=== PATIENT | female | born 1955 | race Caucasian/White ===

== ENCOUNTER → 2023-02-08 13:12 | Outpatient (CLI) | payer MEDICARE, SELFPAY ==
--- NOTE | ~2023-02-08 | US_ITS ---
Duplex Sonography of the right extremity: Indication: Swelling Findings: Sagittal and transverse B-mode images as well as color-flow imaging were performed on the r ight femoral and popliteal veins. B-mode examination was done without and with compression in the tr ansverse plane. There is good visualization of the common femoral, proximal profunda femoral, superf icial femoral, greater saphenous, and popliteal veins. Normal flow was seen on color-flow imaging. N ormal compressibility was demonstrated. Visualized calf veins are also patent. Impression: No evidence of deep vein thrombosis involving the right lower extremity. Reviewed, dictated and finalized at location M. Impression: No evidence of deep vein thrombosis involving the right lower extremity.
== END ==
DX: R22.41 Localized swelling, mass and lump, right lower limb (principal)
CPT/HCPCS: 93971

== ENCOUNTER 2024-10-20 17:10 | Observation (INO) | payer MEDICARE, SELFPAY ==
[2024-10-20] VITALS (22 sets, daily range): BP systolic 120–150; BP diastolic 50–107; PULSE 74–86; RESP 6–28; TEMP 36.6; O2SAT 96–100
--- NOTE | ~2024-10-20 | XR_ITS ---
EXAMINATION: XR chest 1V portable Exam Date/Time: 10/20/2024 18:03 KNOWLEDGE MANAGEMENT CONSULTANT HISTORY: syncope Comparison: 02/28/2018. RESULT: Lines, tubes, and devices: Ovoid/cylindrical opacity over the midline lower chest, presumably weight analyst al artifact. Lungs and pleura: Clear. Cardiomediastinal silhouette: Stable. Other: No acute osseous or upper abdominal finding. IMPRESSION: No acute cardiopulmonary process. Presumed external artifact over the midline lower chest, consider a lateral view of the chest for fur ther evaluation. Reviewed, dictated and finalized at location K. LEDGE MANAGEMENT CONSULTANT IMPRESSION: No acute cardiopulmonary process. Presumed external artifact over the midline lower chest, consider a lateral vie w of the chest for further evaluation.
--- NOTE | ~2024-10-20 | MR_ITS ---
EXAMINATION: MR brain/brain stem wo/w con DATE: 10/22/2024 13:25 INDICATION: Syncope TECHNIQUE: Magnetic resonance imaging (MRI) of the brain and brainstem was performed both prior to an d following the administration of intravenous contrast. 20 mL MultiHance COMPARISON: Reference is made to CT examination of the brain dated 10/20/2024 FINDINGS: No restricted diffusion to suggest acute or subacute cerebral infarction. No abnormal signal intensity on gradient echo imaging to suggest acute or subacute hemorrhage. Trace nonspecific scattered increased T2 weighted signal intensity within the cerebral white matter. No abnormal signal intensity detected on the other sequences within these white matter abnormalities. Flow voids are seen in the cerebral arteries on the T2-weighted sequences consistent with their expec brant patency. Visualized orbits and soft tissues are unremarkable. There are no areas of abnormal enhancement on the post contrast images. Increased T2 signal intensity identified within the left mastoid air cells suggesting left-sided mast oid effusion. Right mastoid air cells are well aerated. Paranasal sinuses are unremarkable. IMPRESSION: No acute cerebral infarction. No acute or subacute hemorrhage. No abnormal contrast enhancement. Scattered nonspecific increased T2 weighted signal intensity within the cerebral white matter without abnormal contrast enhancement or additional signal abnormality. Left-sided mastoid effusion, as detailed above. Reviewed, dictated and finalized at location A. HOLOGIST IMPRESSION: No acute cerebral infarction. No acute or subacute hemorrhage. No abnormal contrast enhancement. Scattered nonspecific increased T2 weighted signal intensity within the cerebra l white matter without abnormal contrast enhancement or additional signal abnor mality. Left-sided mastoid effusion, as detailed above.
--- NOTE | ~2024-10-20 | US_ITS ---
EXAMINATION: US carotid duplex BI DATE: 10/21/2024 16:38 INDICATION: Syncope TECHNIQUE: Grayscale, color Doppler, and pulsed Doppler images of the cervical carotid arteries were obtained. The degree of vessel stenosis is placed in one of the following categories: normal, <50%, 5 0-69%, >=70% but less than near-occlusion, near-occlusion, or total occlusion. Note that percent sten osis relative to normal distal artery lumen diameter is indirectly measured from velocity measurement s as described by Armaan, et al. Radiology 2003; 229:340-346. COMPARISON: None. FINDINGS: RIGHT: The right common carotid artery (CCA) peak systolic velocity (PSV) is 76.5 cm/s. The right internal c arotid artery (ICA) PSV is 107.5 cm/s. The right ICA end-diastolic velocity (EDV) is 34.5 cm/s. The r ight ICA/CCA PSV ratio is 1.4. Grayscale and color Doppler images yield an estimate of less than 50% diameter reduction from plaque in the ICA. The external carotid artery (ECA) PSV is 107.6 cm/s. There is antegrade flow in the right vertebral artery. LEFT: The left CCA PSV is 91.0 cm/s. The left ICA PSV is 77.6 cm/s. The left ICA EDV is 22.6 cm/s. The left ICA/CCA PSV ratio is 0.9. Grayscale and color Doppler images yield an estimate of less than 50% diam eter reduction from plaque in the ICA. The ECA PSV is 101.6 cm/s. There is antegrade flow in the left vertebral artery. IMPRESSION: 1. Less than 50% stenosis in the right internal carotid artery. 2. Less than 50% stenosis in the left internal carotid artery. Reviewed, dictated and finalized at Location A. Reviewed, dictated and finalized at location A. FYING PLANT OPERATOR
--- NOTE | ~2024-10-20 | XR_ITS ---
EXAM: XR hip LT 2V w AP pelvis DATE: 10/20/2024 22:27 HISTORY: fall . COMPARISON: 02/06/2019, images only. FINDINGS: Decreased mineralization. No fracture or dislocation. No lytic or blastic lesion. Degenera tive changes in the lumbar spine. Moderate bilateral hip osteoarthritic arthritis. No erosion or maciej osteal change. Soft tissues within normal limits. IMPRESSION: No acute osseous finding in the pelvis or left hip. Reviewed, dictated and finalized at location K. ASTONE MECHANIC
--- NOTE | ~2024-10-20 | XR_ITS ---
CHEST RADIOGRAPH, PA AND LATERAL CLINICAL HISTORY: syncope . COMPARISON: 10/20/2024 at 6:10 PM TECHNIQUE: PA and lateral views of the chest. FINDINGS Left atrial enlargement. The remainder of the cardiomediastinal silhouette is unremarkable. The ovoid density seen on previous examination does not persist on the current study, likely artifact ual The lungs are clear. IMPRESSION: No focal infiltrate or effusion. Reviewed, dictated and finalized at location A. GER INTEGRATED
--- NOTE | ~2024-10-20 | CT_ITS ---
EXAMINATION: CT brain wo con DATE: 10/20/2024 19:01 INDICATION: syncope and collapse . TECHNIQUE: Computed tomography (CT) of the head was performed without intravenous contrast. The mA wa s adjusted according to patient size. Iterative reconstruction technique was employed. The dose-lengt h product was 605.33 mGy-cm. COMPARISON: 11/18/2005. . FINDINGS: No acute intracranial hemorrhage or extra-axial fluid collection. No hydrocephalus, mass, or herniation. No acute ischemic infarct. Unremarkable dural venous sinus attenuation. No acute osseous abnormality. Left mastoid fluid, the remaining aerated spaces are clear. Mild atrophy and chronic white matter change. Atherosclerotic intracranial calcification. IMPRESSION: No acute intracranial process. Reviewed, dictated and finalized at location K. Y LINE TECHNICIAN
--- NOTE | ~2024-10-20 | XR_ITS ---
EXAM: XR knee RT min 4V DATE: 10/20/2024 19:20 HISTORY: knee pain . COMPARISON: 02/06/2019. FINDINGS: Decreased mineralization. No fracture or dislocation. No lytic or blastic lesion. Uncompli cated appearing right knee arthroplasty hardware. Moderate right knee joint effusion. No erosion or p eriosteal change. Soft tissues within normal limits. IMPRESSION: No acute osseous finding in the right knee. No radiographic evidence of hardware related complication. Reviewed, dictated and finalized at location K. ING HELPER IMPRESSION: No acute osseous finding in the right knee. No radiographic evidenc e of hardware related complication.
--- NOTE | ~2024-10-20 | XR_ITS ---
EXAM: XR knee LT min 4V DATE: 10/20/2024 19:19 HISTORY: knee pain . COMPARISON: 02/06/2019. FINDINGS: Decreased mineralization. No fracture or dislocation. No lytic or blastic lesion. Uncompli cated appearing left knee arthroplasty hardware. Small-volume joint effusion. No erosion or periostea l change. Soft tissues within normal limits. IMPRESSION: No acute osseous finding in the left knee. No radiographic evidence of hardware related c omplication. Reviewed, dictated and finalized at location K. ER PULP WASHER IMPRESSION: No acute osseous finding in the left knee. No radiographic evidence of hardware related complication.
--- NOTE | 2024-10-20 17:26 | ECG_ITS ---
Test Date: 2024-10-20 17:30:50 Measurements Intervals [place] Rate: 79 P: 39 FL: 201 QRS: -3 QRSD: 99 T: 29 QT: 377 QTc: 432 Interpretive Statements SINUS RHYTHM WITH SINUS ARRHYTHMIA LOW QRS VOLTAGE IN PRECORDIAL LEADS [QRS DEFLECTION < 1.0 mV IN CHEST LEADS] MINIMAL VOLTAGE CRITERIA FOR LVH, CONSIDER NORMAL VARIANT [MEETS CRITERIA IN ONE OF: R(aVL), S(V1), R(V5), R(V5/V6)+S(V1)] ABNORMAL ECG Electronically Signed On 10-21-2024 10:40:17 STONE CARRIAGE OPERATOR by Kendall Win M.D.
[2024-10-20 17:58] LABS: Basophils Percent Auto 0.3 % (0.2-1.2); Eosinophils Absolute Auto 0.1 K/mm3 (0-0.3); Eosinophils Percent Auto 1.3 % (0-4.4); Hematocrit 41.9 % (37.0-47.0); Hemoglobin 13.8 g/dL (12.0-15.0); Immature Granulocyte Absolute 0.02 K/mm3 (0.00-0.031); Immature Granulocyte Percent A 0.3 % (0-0.5); Lymphocytes Absolute Auto 1.13 K/mm3 (0.9-3.2); Lymphocytes Percent Auto 18.3 % (18.3-44.2); Mean Corpuscular HGB Conc 32.9 g/dl (32-36); Mean Corpuscular Hemoglobin 31.1 pg (26-34); Mean Corpuscular Volume 94.4 fl (80-100); Monocytes Absolute Auto 0.4 K/mm3 (0.1-0.6); Monocytes Percent Auto 6.3 % (2.6-8.5); Neutrophils Absolute Auto 4.5 K/mm3 (1.3-6.7); Neutrophils Percent Auto 73.5 % (45.5-73.1); Platelet Count Result 163 k/mm3 (150-375); Red Blood Count 4.44 M/mm3 (4.2-5.4); Red Cell Distribution Width 14.9 % (11.5-14.5); White Blood Count 6.2 K/mm3 (4.5-10.0)
--- NOTE | 2024-10-20 18:06 | ED_ITS ---
HPI - General Adult General Chief complaint: Seizure <Theresa Daugherty PA-C - Last Filed: 10/20/24 23:35> Stated complaint: seizure <Theresa Daugherty PA-C - Last Filed: 10/20/24 23:35> Time Seen by Provider: 10/20/24 17:36 <Theresa Daugherty PA-C - Last Filed: 10/20/24 23:35> History of Present Illness HPI narrative: 68-year-old female with a history of thyroid cancer presents to the ED via EMS from home for syncope vs seizure. Patient's daughter is at bedside who assist with history. States she was in the basement when she heard a loud thud. She found her mother on the floor in the kitchen shaking her extremities and foaming at the mouth. States she was unconscious for approximately 2 minutes and contacted 911. When the patient woke up she seemed confused and disoriented for approximately 10 minutes. States she was able to say where she was and who she was, however she was having difficulty recalling the events that occurred and repeating questions. The patient states she has been taking her blood pressure regularly for the past several months as advised by her PCP because she has had 2 syncopal episodes in the past few months, first syncopal episode was in June and the 2nd was in September. She was advised to follow up outpatient with Cardiology Neurology after the syncopal episodes. States she has had a negative workup with Cardiology thus far. She has an appointment on October 27 with her neurologist and believes that the the neuro workup has been negative. She has no history of seizures. She took her blood pressure around 1:00 p.m. today and found it was 120s/80s. States shortly after she began feeling lightheaded while she was cooking in the kitchen. States she wanted to finish cooking so she could eat and was planning to retake her blood pressure, however unfortunately while cooking and she passed out. The patient states her only complaints at this time are for diffuse soreness to the knees which she is attributing to arthritis. Unsure if she hit her head during the fall. She has no other pain or complaints. She denies chest pain, shortness of breath palpitations surrounding the fall, vision changes or focal numbness or weakness. Denies neck pain or back pain. No cough or congestion, no fevers. Pt states she has been advised by her PCP to only take her amlodipine if BP is 150>90, otherwise hold antihypertensives due to concerns that hypotension may be source of recurrent syncope. Patient follows with [facility] for thyroid cancer she had a thyroidectomy in August without complications and underwent radioactive iodine treatment shortly after. She is not currently on chemo or radiation treatment. <Theresa Daugherty PA-C - Last Filed: 10/20/24 23:35> Related Data Allergies/adverse reactions: Allergies Allergy/AdvReac Type Severity Reaction Status Date / Time No Known Allergies Allergy Verified 10/20/24 17:30 <Theresa Daugherty PA-C - Last Filed: 10/20/24 23:35> Review of Systems 2 Review of Systems: All systems reviewed & are unremarkable except as noted in HPI and below <Theresa Daugherty PA-C - Last Filed: 10/20/24 23:35> PMFSH Family History Family History: Family History Other Diabetes mellitus Family history of malignant neoplasm Hypertension <Theresa Daugherty PA-C - Last Filed: 10/20/24 23:35> Social History Social History: Social History Smoking status: Never smoker Alcohol intake: current <Theresa Daugherty PA-C - Last Filed: 10/20/24 23:35> Exam 2 Narrative: GENERAL: Well-appearing, well-nourished, and in no acute distress. HEAD: Normocephalic, atraumatic. EYES: PERRLA and EOMI. ENT: Nares clear, no rhinorrhea or epistaxis. Mucous membranes moist. NECK: No midline cervical spinous tenderness, crepitus, step-offs or deformities BACK: No midline thoracolumbar spinous tenderness, crepitus, step-offs or deformities CHEST: Clear to auscultation. No respiratory distress. HEART: Regular rate and rhythm. No murmur heard. Normal peripheral pulses. ABDOMEN: Soft, nontender, nondistended, normal active bowel sounds. EXTREMITIES: Diffuse tenderness to the knees on palpation bilaterally with no overlying skin changes or deformities. Limited active range of motion secondary to pain. Full passive range of motion. DP pulse 2 +. Sensation intact. Tenderness to the left hip with full active range of motion no obvious deformities SKIN: Warm, dry, no rash. NEURO: No focal deficits. Alert and oriented x3. Cranial nerves 2-12 intact. Strength 5/5 in BUE and BLE. Sensation intact throughout <Theresa Daugherty PA-C - Last Filed: 10/20/24 23:35> Course CIVIL ENGINEERING DESIGN DRAFTSPERSON/PA Physician Supervision For this patient encounter, I reviewed the CIVIL ENGINEERING DESIGN DRAFTSPERSON or PA documentation, treatment plan, and medical decision making; and I had [id number] time with this patient. <Solitario Mane MD - Last Filed: 10/21/24 04:49> Vital Signs Vital signs: Vital Signs Temperature 97.9 F 10/20/24 17:11 Pulse Rate 86 10/20/24 17:11 Blood Pressure 139/107 H 10/20/24 17:11 Pulse Oximetry 99 10/20/24 17:11 Oxygen Delivery Room Air 10/20/24 17:11 Temperature 97.9 F 10/20/24 17:11 Pulse Rate 63 10/21/24 03:47 Respiratory Rate 12 10/21/24 03:47 Blood Pressure 136/62 10/21/24 03:47 Pulse Oximetry 99 10/21/24 03:47 Oxygen Delivery CPAP 10/21/24 01:32 <Theresa Daugherty PA-C - Last Filed: 10/20/24 23:35> Vital Signs Temperature 97.9 F 10/20/24 17:11 Pulse Rate 86 10/20/24 17:11 Blood Pressure 139/107 H 10/20/24 17:11 Pulse Oximetry 99 10/20/24 17:11 Oxygen Delivery Room Air 10/20/24 17:11 Temperature 97.9 F 10/20/24 17:11 Pulse Rate 63 10/21/24 03:47 Respiratory Rate 12 10/21/24 03:47 Blood Pressure 136/62 10/21/24 03:47 Pulse Oximetry 99 10/21/24 03:47 Oxygen Delivery CPAP 10/21/24 01:32 <Solitario Mane MD - Last Filed: 10/21/24 04:49> Medical Decision Making MDM Narrative Medical decision making narrative: 68-year-old female presents to the ED via EMS with daughter at bedside for a syncopal episode that occurred this afternoon. See HPI for further history. Triage vitals with blood pressure 139/107, repeat is 145/89. She is afebrile nontoxic appearing resting comfortably in the exam bed. No evidence of trauma on exam other than diffuse bilateral knee tenderness which I suspect is chronic. Overall history is consistent with syncope as opposed to seizure, especially given patient's recent history over the past several months. Lab work shows no leukocytosis or anemia. Chemistries show no acute significant findings. Mag is normal. No electrolyte derangements. CT the brain shows no acute intracranial finding. X-ray bilateral knees is unremarkable. X-ray of the left hip unremarkable. X-ray of the chest shows no acute cardiopulmonary process. EKG shows sinus rhythm with sinus arrhythmia, prolonged CO interval to 201 consistent with first-degree AV block, normal QRS duration, normal QTC, no ischemic changes. Troponin is elevated to .0.042. TSH is low, pending reflex to free T4 and T3. Workup was discussed with the patient and daughter at bedside. Given elevated troponin in the setting of syncope, plan to admit to hospitalist for further evaluation. Pt and family agreeable with this. Discussed with Dr. Adams who agrees with the plan. <Theresa Daugherty PA-C - Last Filed: 10/20/24 23:35> Vital Signs Vital Signs: Vital Signs Temperature 97.9 F 10/20/24 17:11 Pulse Rate 86 10/20/24 17:11 Blood Pressure 139/107 H 10/20/24 17:11 Pulse Oximetry 99 10/20/24 17:11 Oxygen Delivery Room Air 10/20/24 17:11 Temperature 97.9 F 10/20/24 17:11 Pulse Rate 63 10/21/24 03:47 Respiratory Rate 12 10/21/24 03:47 Blood Pressure 136/62 10/21/24 03:47 Pulse Oximetry 99 10/21/24 03:47 Oxygen Delivery CPAP 10/21/24 01:32 <Theresa Daugherty PA-C - Last Filed: 10/20/24 23:35> Vital Signs Temperature 97.9 F 10/20/24 17:11 Pulse Rate 86 10/20/24 17:11 Blood Pressure 139/107 H 10/20/24 17:11 Pulse Oximetry 99 10/20/24 17:11 Oxygen Delivery Room Air 10/20/24 17:11 Temperature 97.9 F 10/20/24 17:11 Pulse Rate 63 10/21/24 03:47 Respiratory Rate 12 10/21/24 03:47 Blood Pressure 136/62 10/21/24 03:47 Pulse Oximetry 99 10/21/24 03:47 Oxygen Delivery CPAP 10/21/24 01:32 <Solitario Mane MD - Last Filed: 10/21/24 04:49> Lab Data Result diagrams: 10/20/24 17:45 10/20/24 17:45 <Theresa Daugherty PA-C - Last Filed: 10/20/24 23:35> Labs: Lab Results 10/20/24 10/20/24 Range/Units 17:45 22:46 WBC 6.2 (4.5-10.0) K/mm3 RBC 4.44 (4.2-5.4) M/mm3 Hgb 13.8 (12.0-15.0) g/dL Hct 41.9 (37.0-47.0) % MCV 94.4 (80-100) fl MCH 31.1 (26-34) pg MCHC 32.9 (32-36) g/dl RDW 14.9 H (11.5-14.5) % Plt Count 163 (150-375) k/mm3 MPV 11.0 H (7.4-10.4) fl Immature Gran % (Auto) 0.3 (0-0.5) % Neut % (Auto) 73.5 H (45.5-73.1) % Lymph % (Auto) 18.3 (18.3-44.2) % [place] % (Auto) 6.3 (2.6-8.5) % Eos % (Auto) 1.3 (0-4.4) % Baso % (Auto) 0.3 (0.2-1.2) % Lymph # (Auto) 1.13 (0.9-3.2) K/mm3 [place] # (Auto) 0.4 (0.1-0.6) K/mm3 Eos # (Auto) 0.1 (0-0.3) K/mm3 Baso # (Auto) 0.0 (0.0-0.1) K/mm3 Abs Immat Gran (auto) 0.02 (0.00-0.031) K/mm3 Absolute Neuts (auto) 4.5 (1.3-6.7) K/mm3 Absolute Nucleated RBC 0.000 (0.0-0.012) K/mm3 Nucleated RBC % 0.0 (0.0-0.2) % PT 14.1 (11.1-14.7) Seconds INR 1.1 APTT 23.5 (22.3-36.8) Seconds Sodium 140 (137-145) mmol/L Potassium 4.0 (3.4-5.0) mmol/L Chloride 102 (98-107) mmol/L Carbon Dioxide 27 (22-30) mmol/L Anion Gap 11 (4-12) mmol/L BUN 23 H (7-17) mg/dL Creatinine 0.72 (0.7-1.0) mg/dL Estim Creat Clear Calc 77 ml/min Estimated GFR > 60 (59 - ) Glucose 134 H (65-110) mg/dL Calcium 8.9 (8.4-10.2) mg/dL Magnesium 2.1 (1.6-2.3) mg/dL Total Bilirubin 0.6 (0.2-1.3) mg/dL AST 33 (14-36) U/L ALT 38 H (6-35) U/L Alkaline Phosphatase 131 H (38-126) U/L Troponin I 0.042 H* 0.172 H* D (0.000-0.034) ng/mL NT-Pro-B Natriuret Pep 80 (19.9-100) pg/mL Total Protein 8.0 (6.3-8.2) g/dL Albumin 4.7 (3.5-5.1) g/dL TSH (Reflex) 0.107 L (0.465-4.68) uIU/mL Free T4 2.53 H (0.78-2.19) ng/dL Urine Color Yellow (Yellow) Urine Appearance Clear (Clear) Urine pH 5.5 (5.0-9.0) Ur Specific [place] 1.009 (1.001-1.035) Urine Protein Negative (Negative) mg/dL Urine Glucose (UA) Negative (Negative) mg/dL Urine Ketones Negative (Negative) mg/dL Ur Blood (Man) Negative (Negative) Urine Nitrate Negative (Negative) Urine Bilirubin Negative (Negative) Urine Urobilinogen 0.2 (<2.0) mg/dL Leukocyte Esterase Rfl Trace H (Negative) EVELINE/UL Urine RBC 0-2 (0-2) /hpf Urine WBC 0-5 (0-3) /hpf Ur Squamous Epith Cells None seen (Few) /hpf Urine Bacteria None seen /hpf Urine Casts 0-2 <Theresa Daugherty PA-C - Last Filed: 10/20/24 23:35> Lab Results 10/20/24 10/20/24 Range/Units 17:45 22:46 WBC 6.2 (4.5-10.0) K/mm3 RBC 4.44 (4.2-5.4) M/mm3 Hgb 13.8 (12.0-15.0) g/dL Hct 41.9 (37.0-47.0) % MCV 94.4 (80-100) fl MCH 31.1 (26-34) pg MCHC 32.9 (32-36) g/dl RDW 14.9 H (11.5-14.5) % Plt Count 163 (150-375) k/mm3 MPV 11.0 H (7.4-10.4) fl Immature Gran % (Auto) 0.3 (0-0.5) % Neut % (Auto) 73.5 H (45.5-73.1) % Lymph % (Auto) 18.3 (18.3-44.2) % B[place]so[place] % (Auto) 6.3 (2.6-8.5) % Eos % (Auto) 1.3 (0-4.4) % Baso % (Auto) 0.3 (0.2-1.2) % Lymph # (Auto) 1.13 (0.9-3.2) K/mm3 [place] # (Auto) 0.4 (0.1-0.6) K/mm3 Eos # (Auto) 0.1 (0-0.3) K/mm3 Baso # (Auto) 0.0 (0.0-0.1) K/mm3 Abs Immat Gran (auto) 0.02 (0.00-0.031) K/mm3 Absolute Neuts (auto) 4.5 (1.3-6.7) K/mm3 Absolute Nucleated RBC 0.000 (0.0-0.012) K/mm3 Nucleated RBC % 0.0 (0.0-0.2) % PT 14.1 (11.1-14.7) Seconds INR 1.1 APTT 23.5 (22.3-36.8) Seconds Sodium 140 (137-145) mmol/L Potassium 4.0 (3.4-5.0) mmol/L Chloride 102 (98-107) mmol/L Carbon Dioxide 27 (22-30) mmol/L Anion Gap 11 (4-12) mmol/L BUN 23 H (7-17) mg/dL Creatinine 0.72 (0.7-1.0) mg/dL Estim Creat Clear Calc 77 ml/min Estimated GFR > 60 (59 - ) Glucose 134 H (65-110) mg/dL Calcium 8.9 (8.4-10.2) mg/dL Magnesium 2.1 (1.6-2.3) mg/dL Total Bilirubin 0.6 (0.2-1.3) mg/dL AST 33 (14-36) U/L ALT 38 H (6-35) U/L Alkaline Phosphatase 131 H (38-126) U/L Troponin I 0.042 H* 0.172 H* D (0.000-0.034) ng/mL NT-Pro-B Natriuret Pep 80 (19.9-100) pg/mL Total Protein 8.0 (6.3-8.2) g/dL Albumin 4.7 (3.5-5.1) g/dL TSH (Reflex) 0.107 L (0.465-4.68) uIU/mL Free T4 2.53 H (0.78-2.19) ng/dL Urine Color Yellow (Yellow) Urine Appearance Clear (Clear) Urine pH 5.5 (5.0-9.0) Ur Specific [place] 1.009 (1.001-1.035) Urine Protein Negative (Negative) mg/dL Urine Glucose (UA) Negative (Negative) mg/dL Urine Ketones Negative (Negative) mg/dL Ur Blood (Man) Negative (Negative) Urine Nitrate Negative (Negative) Urine Bilirubin Negative (Negative) Urine Urobilinogen 0.2 (<2.0) mg/dL Leukocyte Esterase Rfl Trace H (Negative) EVELINE/UL Urine RBC 0-2 (0-2) /hpf Urine WBC 0-5 (0-3) /hpf Ur Squamous Epith Cells None seen (Few) /hpf Urine Bacteria None seen /hpf Urine Casts 0-2 <Solitario Mane MD - Last Filed: 10/21/24 04:49> Discharge Plan Discharge Clinical Impression: Elevated troponin Syncope Qualifiers: Syncope type: unspecified Qualified Code(s): R55 - Syncope and collapse <Theresa Daugherty PA-C - Last Filed: 10/20/24 23:35> Patient Disposition: Still a Patient <Theresa Daugherty PA-C - Last Filed: 10/20/24 23:35> Condition: Stable <Theresa Daugherty PA-C - Last Filed: 10/20/24 23:35>
[2024-10-20 18:15] LABS: Alanine Aminotransferase 38 U/L (6-35); Albumin Level 4.7 g/dL (3.5-5.1); Alkaline Phosphatase 131 U/L (38-126); Anion Gap 11 mmol/L (4-12); Aspartate Amino Transferase 33 U/L (14-36); Bilirubin,Total 0.6 mg/dL (0.2-1.3); Blood Urea Nitrogen 23 mg/dL (7-17); Calcium 8.9 mg/dL (8.4-10.2); Carbon Dioxide 27 mmol/L (22-30); Chloride 102 mmol/L (98-107); Estimated CRCL calculation 77 ml/min; Estimated Glomerular Filt Rate > 60; Glucose 134 mg/dL (65-110); Sodium 140 mmol/L (137-145)
[2024-10-20] MEDS: SODIUM CHLORIDE 0.9% IV 1,000 ML 999 ML IV CONT ×2 (18:28→23:52)
[2024-10-20 21:23] LABS: Magnesium 2.1 mg/dL (1.6-2.3)
[2024-10-20 21:40] LABS: NT Pro B Type Natriuretic Pept 80 pg/mL (19.9-100); Troponin I 0.042 ng/mL (0.000-0.034)
[2024-10-20 21:42] LABS: INR 1.1; Prothrombin Time 14.1 Seconds (11.1-14.7)
[2024-10-20 21:43] LABS: Partial Thromboplastin Time 23.5 Seconds (22.3-36.8)
[2024-10-20 22:42] LABS: Thyroid Stimulating Hormone Reflex 0.107 uIU/mL (0.465-4.68)
--- NOTE | 2024-10-20 22:43 | ECG_ITS ---
Test Date: 2024-10-20 22:50:15 Measurements Intervals [place] Rate: 78 P: 36 MS: 203 QRS: 5 QRSD: 90 T: 40 QT: 377 QTc: 429 Interpretive Statements SINUS RHYTHM NORMAL ECG Compared to ECG 10/20/2024 17:30:50 Sinus arrhythmia no longer present Electronically Signed On 10-21-2024 10:46:38 MAINTENANCE SUPERVISOR by Kendall Win M.D.
[2024-10-20 23:01] LABS: Add Urine Microscopic? YES; Appearance Urine Clear (Clear); Bacteria Urine None Seen /hpf; Bilirubin Urine Negative (Negative); Blood Urine Negative (Negative); Color Urine Yellow (Yellow); Glucose Urine UA Negative (Negative); Ketones Urine Negative (Negative); Leukocyte Esterase Ur Trace LEU/UL (Negative); Nitrate Urine Negative (Negative); Non Pathogenic Casts 0-2; Protein Urine Negative (Negative); RBC Urine 0-2 /hpf (0-2); Specific Grav Ur 1.009 (1.001-1.035); Squamous Epithelial Cell Urine None Seen /hpf (Few); Urobilinogen Urine 0.2 mg/dL (<2.0); WBC Urine 0-5 /hpf (0-3); pH Urine 5.5 (5.0-9.0)
[2024-10-20 23:54] LABS: Free T4 Free Thyroxine Reflex 2.53 ng/dL (0.78-2.19)
[2024-10-21] VITALS (32 sets, daily range): BP systolic 98–145; BP diastolic 40–91; PULSE 47–89; RESP 12–24; TEMP 36.6–37.3; O2SAT 97–100; BMI 38.8
--- NOTE | 2024-10-21 00:14 | PC.NURSE ---
patient requesting cpap machine to help her sleep. pt states she also needs ice packs on bilateral knees due to swelling from falling .
[2024-10-21 00:16] LABS: Troponin I 0.172 ng/mL (0.000-0.034)
--- NOTE | 2024-10-21 01:30 | PM.IMHP ---
H&P: HPI History of Present Illness Date/Time: 10/21/24 01:30 Chief Complaint: Syncope Narrative: This is a 68-year-old female with past medical history significant for syncopal episodes, the thyroid cancer status post total thyroidectomy, hypertension, obesity. Patient was brought to the emergency room after having episode of syncope with collapse daughter found her sitting on the kitchen floor, unresponsive, stooped over with involuntary movement of bilateral upper extremities and foaming at the mouth. Patient has had a 40 lb weight loss intentionally has had episodes of syncope and seizure activity witnessed has had extensive thyroid workup done at [facility] currently has follow-up appointments with Cardiology and Neurology and primary care physician. In emergency room patient was found to have slight elevation of troponin and decision has been made to keep for observation. EXAMINATION: CT brain wo con DATE: 10/20/2024 19:01 INDICATION: syncope and collapse . TECHNIQUE: Computed tomography (CT) of the head was performed without intravenous contrast. The mA was adjusted according to patient size. Iterative reconstruction technique was employed. The dose-length product was 605.33 mGy-cm. COMPARISON: 11/18/2005. . FINDINGS: No acute intracranial hemorrhage or extra-axial fluid collection. No hydrocephalus, mass, or herniation. No acute ischemic infarct. Unremarkable dural venous sinus attenuation. No acute osseous abnormality. Left mastoid fluid, the remaining aerated spaces are clear. Mild atrophy and chronic white matter change. Atherosclerotic intracranial calcification. IMPRESSION: No acute intracranial process. CHEST RADIOGRAPH, PA AND LATERAL CLINICAL HISTORY: syncope . COMPARISON: 10/20/2024 at 6:10 PM TECHNIQUE: PA and lateral views of the chest. FINDINGS Left atrial enlargement. The remainder of the cardiomediastinal silhouette is unremarkable. The ovoid density seen on previous examination does not persist on the current study, likely artifactual The lungs are clear. IMPRESSION: No focal infiltrate or effusion. EXAM: XR hip LT 2V w AP pelvis DATE: 10/20/2024 22:27 HISTORY: fall . COMPARISON: 02/06/2019, images only. FINDINGS: Decreased mineralization. No fracture or dislocation. No lytic or blastic lesion. Degenerative changes in the lumbar spine. Moderate bilateral hip osteoarthritic arthritis. No erosion or periosteal change. Soft tissues within normal limits. IMPRESSION: No acute osseous finding in the pelvis or left hip. Review of Systems Review of Systems: ROS unobtainable: Yes unobtainable due to mental status (Patient has no recollection of event) [facility] Family History Family History Other Diabetes mellitus Family history of malignant neoplasm Hypertension Social History Social History Smoking status: Never smoker Alcohol intake: current Meds Home Medications and Allergies Allergies Allergy/AdvReac Type Severity Reaction Status Date / Time No Known Allergies Allergy Verified 10/20/24 17:30 Vital Signs Vital Signs - 24 hr 10/20/24 17:11 10/20/24 17:23 10/20/24 17:25 Temperature 97.9 F Pulse Rate 86 Respiratory Rate Blood Pressure 139/107 H Pulse Oximetry 99 Oxygen Delivery Room Air Room Air Room Air 10/20/24 17:31 10/20/24 17:47 10/20/24 18:01 Temperature Pulse Rate 83 78 83 Respiratory Rate 20 14 28 H Blood Pressure 145/89 H 130/74 145/89 H Pulse Oximetry 99 100 100 Oxygen Delivery 10/20/24 18:17 10/20/24 18:32 10/20/24 19:46 Temperature Pulse Rate 80 79 79 Respiratory Rate 14 20 14 Blood Pressure 145/78 H 150/69 H 144/66 H Pulse Oximetry 99 100 98 Oxygen Delivery 10/20/24 20:16 10/20/24 20:32 10/20/24 20:46 Temperature Pulse Rate 77 74 81 Respiratory Rate 16 19 18 Blood Pressure 147/73 H 142/61 H 142/71 H Pulse Oximetry 97 98 98 Oxygen Delivery 10/20/24 21:01 10/20/24 21:16 10/20/24 21:31 Temperature Pulse Rate 77 79 78 Respiratory Rate 17 14 18 Blood Pressure 139/65 144/72 H 145/71 H Pulse Oximetry 97 96 98 Oxygen Delivery 10/20/24 21:47 10/20/24 22:01 10/20/24 22:16 Temperature Pulse Rate 82 76 81 Respiratory Rate 19 18 Blood Pressure 134/68 129/50 L 125/69 Pulse Oximetry 99 99 99 Oxygen Delivery 10/20/24 22:31 10/20/24 22:46 10/20/24 23:01 Temperature Pulse Rate 79 76 78 Respiratory Rate 6 L 14 Blood Pressure 125/66 120/77 131/57 L Pulse Oximetry 99 99 98 Oxygen Delivery 10/20/24 23:16 10/20/24 23:32 10/20/24 23:46 Temperature Pulse Rate 75 83 77 Respiratory Rate 18 14 16 Blood Pressure 123/59 L 143/88 H 131/65 Pulse Oximetry 98 99 99 Oxygen Delivery 10/21/24 00:25 Temperature Pulse Rate Respiratory Rate Blood Pressure Pulse Oximetry Oxygen Delivery CPAP Exam Narrative: Laying in a stretcher Const: General: comfortable, no acute distress, well developed, alert, awake and obese Nutritional Appearance: obese morbidly obese Orientation/consciousness: patient oriented x3 HENMT: Head: normal to inspection, normocephalic and atraumatic Ears: hearing grossly normal bilaterally Face/Nose/Sinus: normal facial exam Face and sinus: normal facial exam Eyes: General: appearance normal, both eyes and all related structures Pupils: Equal, round and reactive pupils present EOM: EOMs intact bilaterally Neck: Neck: full ROM, no lymphadenopathy and no JVD Thyroid: thyroid normal Lymphatic: no lymphadenopathy noted Resp: Effort & Inspection: normal respiratory effort and able to speak in complete sentences Auscultation: clear to auscultation bilaterally Cardio: Jugular venous distension: no JVD Rate: regular rate Rhythm: regular rhythm Heart sounds: S1 normal heart sound present and S2 normal heart sound present GI: GI Palp: Yes Soft to palpation and Yes No hepatosplenomegaly present : General: Yes deferred Skin: Rashes: no rashes Wounds: no wounds Neuro: General: patient oriented x3 and CN's II-XI intact bilaterally Cranial nerves: Yes CN's II-XII intact bilaterally and Yes Equal, round and reactive pupils present Cognition (Neuro): normal cognition Speech: normal speech Gait exam (Neuro): Unable to assess gait Motor exam (neuro): 5/5 motor strength present throughout Extrem: General: normal to inspection, full ROM, no joint enlargement and no pedal edema H&P: Results Labs Labs: Short CBC 10/20/24 Range/Units 17:45 WBC 6.2 (4.5-10.0) K/mm3 Hgb 13.8 (12.0-15.0) g/dL Hct 41.9 (37.0-47.0) % Plt Count 163 (150-375) k/mm3 [facility] 10/20/24 17:45 Sodium 140 Potassium 4.0 Chloride 102 Carbon Dioxide 27 BUN 23 H Creatinine 0.72 Glucose 134 H Calcium 8.9 Cardiac Enzymes 10/20/24 10/20/24 Range/Units 17:45 22:46 Troponin I 0.042 H* 0.172 H* D (0.000-0.034) ng/mL Liver Function 10/20/24 Range/Units 17:45 Total Bilirubin 0.6 (0.2-1.3) mg/dL AST 33 (14-36) U/L ALT 38 H (6-35) U/L Alkaline Phosphatase 131 H (38-126) U/L Albumin 4.7 (3.5-5.1) g/dL Urine 10/20/24 Range/Units 22:46 Urine Color Yellow (Yellow) Urine Appearance Clear (Clear) Urine pH 5.5 (5.0-9.0) Ur Specific [place] 1.009 (1.001-1.035) Urine Protein Negative (Negative) mg/dL Urine Glucose (UA) Negative (Negative) mg/dL Assessment and Plan Assessment and plan (1) Elevated troponin: Code(s): R79.89 - Other specified abnormal findings of blood chemistry Status: Acute Assessment and Plan: Admit to IMU Continue to trend troponins EKG unchanged Chest pain free (2) Syncope: Qualifiers: Syncope type: unspecified Qualified Code(s): R55 - Syncope and collapse Code(s): R55 - Syncope and collapse Status: Acute Assessment and Plan: Follow-up in outpatient setting Patient with extensive workup done at [facility] (3) Morbid obesity with BMI of 45.0-49.9, adult: Code(s): E66.01 - Morbid (severe) obesity due to excess calories; Z68.42 - Body mass index [BMI] 45.0-49.9, adult Status: Acute Assessment and Plan: Patient actively participating in weight loss (4) Weight loss: Code(s): R63.4 - Abnormal weight loss Status: Acute Assessment and Plan: Has had 40 lb weight loss after intentionally participating in weight loss Hospitalist [facility] Advance Care Plan I have confirmed that the patient's Advanced Care Plan is present, code status is documented, or surrogate decision maker is listed in patient medical record.: Yes Medication Reconciliation I have utilized all available resources to obtain, update and review the patients current medications (includes all prescriptions, OTC, herbals, cannabis, and nutritional supplements).: Yes
[2024-10-21 03:37] LABS: Troponin I 0.125 ng/mL (0.000-0.034)
--- NOTE | 2024-10-21 06:59 | PC.NURSE ---
this rn confirmed home medications with patient at bedside.
--- NOTE | 2024-10-21 07:44 | PC.NURSE ---
breakfast tray ordered at this time
--- NOTE | 2024-10-21 08:05 | PC.NURSE ---
Pt c/o not having her home medications. Hospitalist called to update and inform med list was confirmed
--- NOTE | 2024-10-21 09:36 | PC.NURSE ---
Called pharmacy for missing meds
[2024-10-21] MEDS: SERTRALINE HCL 50 MG TABLET 100 MG PO (10:40)
[2024-10-21] MEDS: ATORVASTATIN 40 MG TABLET PO (10:40)
[2024-10-21] MEDS: ACETAMINOPHEN 325 MG TABLET 650 MG PO ×2 (10:40→17:44)
--- NOTE | 2024-10-21 12:39 | P.PNIM_ITS ---
Progress Note: A&P Assessment and Plan (1) Elevated troponin: Code(s): R79.89 - Other specified abnormal findings of blood chemistry Status: Acute (2) Syncope: Qualifiers: Syncope type: unspecified Qualified Code(s): R55 - Syncope and collapse Code(s): R55 - Syncope and collapse Status: Acute (3) Morbid obesity with BMI of 45.0-49.9, adult: Code(s): E66.01 - Morbid (severe) obesity due to excess calories; Z68.42 - Body mass index [BMI] 45.0-49.9, adult Status: Acute (4) Weight loss: Code(s): R63.4 - Abnormal weight loss Status: Acute Plan This is a 68-year-old female who presents to the ED via EMS from home for syncope vs seizure. Patient's daughter is at bedside who assist with history. States she was in the basement when she heard a loud thud. She found her mother on the floor in the kitchen shaking her extremities and foaming at the mouth. States she was unconscious for approximately 2 minutes and contacted 911. When the patient woke up she seemed confused and disoriented for approximately 10 minutes. States she was able to say where she was and who she was, however she was having difficulty recalling the events that occurred and repeating questions. She took her blood pressure around 1:00 p.m. today and found it was 120s/80s. States shortly after she began feeling lightheaded while she was cooking in the kitchen. States she wanted to finish cooking so she could eat and was planning to retake her blood pressure, however unfortunately while cooking and she passed out. ED evaluation with laboratory workup showed no leukocytosis or anemia. Came panel was unremarkable. Magnesium is normal. CT head with no acute intracran ial abnormality. X-ray bilateral knees unremarkable. X-ray left hip unremarkable. X-ray chest with no acute cardiopulmonary process. EKG showed sinus rhythm with sinus arrhythmia prolonged NM interval to to 0 1 consistent with first-degree AV block normal QRS duration normal QTC. Troponin came back elevated at 0.042. Serial troponin was performed which showed 0.042-0.172-0.125. The patient states she has been taking her blood pressure regularly for the past several months as advised by her PCP because she has had 2 syncopal episodes in the past few months, first syncopal episode was in June and the 2nd was in September. She was advised to follow up outpatient with Cardiology Neurology after the syncopal episodes. States she has had a negative workup with Cardiology thus far. Stress test 08/2024 was negative. Holter showed some episodes of supraventricular tachycardia otherwise unremarkable. Will consult Cardiology for further evaluation. Will get echocardiogram and carotid She also had MRI brain which showed microhemorrhages in cerebellar and frontal lobe. Findings suggestive of intracranial hypertension. She follows up with neurologist. No prior history of seizures. Neurology for evaluation Elevated troponin placed on aspirin 81 mg daily Thyroid cancer status post thyroidectomy August 2024 on thyroid supplement. TSH mildly low with high T4 Bilateral knee pain history of bilateral knee replacement x-ray unremarkable Recent history of significant weight loss History of sleep apnea on CPAP Hypertension Hyperlipidemia DVT prophylaxis Lovenox Code status full code Subjective Date/time seen: 10/21/24 12:39 Interval history: Chart reviewed. Reports legs are sore. No other complaints Review of Systems Review of Systems: All systems reviewed & are unremarkable except as noted in HPI and below Exam Narrative: GENERAL: Well-appearing, well-nourished, and in no acute distress. HEAD: Normocephalic, atraumatic. EYES: PERRLA and EOMI. ENT: Nares clear, no rhinorrhea or epistaxis. Mucous membranes moist. CHEST: Clear to auscultation. No respiratory distress. HEART: Regular rate and rhythm. No murmur heard. Normal peripheral pulses. ABDOMEN: Soft, nontender, nondistended, normal active bowel sounds. EXTREMITIES: Diffuse tenderness to the knees on palpation bilaterally with no overlying skin changes or deformities. Limited active range of motion secondary to pain. Full passive range of motion. DP pulse 2 +. Sensation intact. Tenderness to the left hip with full active range of motion no obvious deformities SKIN: Warm, dry, no rash. NEURO: No focal deficits. Alert and oriented x3. Cranial nerves 2-12 intact. Strength 5/5 in BUE and BLE. Sensation intact throughout Objective Data Vital Signs Vital Signs: Vital Signs - 24 hr 10/20/24 17:11 10/20/24 17:23 10/20/24 17:25 Temperature 97.9 F Pulse Rate 86 Respiratory Rate Blood Pressure 139/107 H Pulse Oximetry 99 Oxygen Delivery Room Air Room Air Room Air 10/20/24 17:31 10/20/24 17:47 10/20/24 18:01 Temperature Pulse Rate 83 78 83 Respiratory Rate 20 14 28 H Blood Pressure 145/89 H 130/74 145/89 H Pulse Oximetry 99 100 100 Oxygen Delivery 10/20/24 18:17 10/20/24 18:32 10/20/24 19:46 Temperature Pulse Rate 80 79 79 Respiratory Rate 14 20 14 Blood Pressure 145/78 H 150/69 H 144/66 H Pulse Oximetry 99 100 98 Oxygen Delivery 10/20/24 20:16 10/20/24 20:32 10/20/24 20:46 Temperature Pulse Rate 77 74 81 Respiratory Rate 16 19 18 Blood Pressure 147/73 H 142/61 H 142/71 H Pulse Oximetry 97 98 98 Oxygen Delivery 10/20/24 21:01 10/20/24 21:16 10/20/24 21:31 Temperature Pulse Rate 77 79 78 Respiratory Rate 17 14 18 Blood Pressure 139/65 144/72 H 145/71 H Pulse Oximetry 97 96 98 Oxygen Delivery 10/20/24 21:47 10/20/24 22:01 10/20/24 22:16 Temperature Pulse Rate 82 76 81 Respiratory Rate 19 18 Blood Pressure 134/68 129/50 L 125/69 Pulse Oximetry 99 99 99 Oxygen Delivery 10/20/24 22:31 10/20/24 22:46 10/20/24 23:01 Temperature Pulse Rate 79 76 78 Respiratory Rate 6 L 14 Blood Pressure 125/66 120/77 131/57 L Pulse Oximetry 99 99 98 Oxygen Delivery 10/20/24 23:16 10/20/24 23:32 10/20/24 23:46 Temperature Pulse Rate 75 83 77 Respiratory Rate 18 14 16 Blood Pressure 123/59 L 143/88 H 131/65 Pulse Oximetry 98 99 99 Oxygen Delivery 10/21/24 00:17 10/21/24 00:25 10/21/24 00:46 Temperature Pulse Rate 76 66 Respiratory Rate 24 H 22 H Blood Pressure 131/66 131/68 Pulse Oximetry 99 99 Oxygen Delivery CPAP 10/21/24 01:01 10/21/24 01:16 10/21/24 01:31 Temperature Pulse Rate 63 68 68 Respiratory Rate 15 16 20 Blood Pressure 131/65 124/68 128/68 Pulse Oximetry 100 98 99 Oxygen Delivery 10/21/24 01:32 10/21/24 01:46 10/21/24 02:01 Temperature Pulse Rate 64 60 Respiratory Rate 18 18 Blood Pressure 133/71 137/69 Pulse Oximetry 98 100 100 Oxygen Delivery CPAP 10/21/24 02:17 10/21/24 02:31 10/21/24 02:47 Temperature Pulse Rate 56 L 64 62 Respiratory Rate 15 16 16 Blood Pressure 120/57 L 121/68 122/70 Pulse Oximetry 98 100 99 Oxygen Delivery 10/21/24 03:01 10/21/24 03:16 10/21/24 03:31 Temperature Pulse Rate 59 L 63 57 L Respiratory Rate 15 13 16 Blood Pressure 128/64 136/68 126/71 Pulse Oximetry 99 100 100 Oxygen Delivery 10/21/24 03:47 10/21/24 04:17 10/21/24 05:01 Temperature Pulse Rate 63 89 68 Respiratory Rate 12 16 19 Blood Pressure 136/62 132/77 123/64 Pulse Oximetry 99 98 Oxygen Delivery 10/21/24 05:46 10/21/24 06:32 10/21/24 07:57 Temperature Pulse Rate 62 66 Respiratory Rate 16 19 Blood Pressure 132/67 145/63 H Pulse Oximetry 100 99 Oxygen Delivery Room Air 10/21/24 07:57 10/21/24 10:08 10/21/24 10:47 Temperature 97.9 F Pulse Rate 65 83 68 Respiratory Rate 18 20 19 Blood Pressure 143/77 H 136/67 144/71 H Pulse Oximetry 99 98 100 Oxygen Delivery Intake/Output Intake/Output: Intake & Output 10/18/24 10/19/24 10/20/24 10/21/24 23:59 23:59 23:59 23:59 Intake Total 1000 1000 Balance 1000 1000 Meds/Results Medications: Active Medications Generic Name Dose Route Start Last Admin Trade Name Freq PRN Reason Stop Dose Admin Acetaminophen 650 mg 10/21/24 08:25 10/21/24 10:40 Acetaminophen 325 Mg Tablet PO 650 mg Q6H PRN Administration Mild Pain (1-3) or Fever Amlodipine Besylate 5 mg 10/21/24 08:24 Amlodipine Besylate 5 Mg Tablet PO ONCE PRN increased blood pressure Atorvastatin Calcium 40 mg 10/21/24 09:00 10/21/24 10:40 Atorvastatin 40 Mg Tablet PO 40 mg DAILY DREW Administration Levothyroxine Sodium 125 mcg 10/22/24 06:30 Levothyroxine Sodium 125 Mcg Tablet PO DAILY@0630 [facility] Levothyroxine Sodium 50 mcg 10/22/24 06:30 Levothyroxine Sodium 50 Mcg Tablet PO DAILY@0630 [facility] Perflutren Lipid Microsphere 0 ml 10/20/24 23:06 Perflutren Lipid Microspheres 1.5 Ml Vial Diluted To 10 Ml Total Volume IV PUSH 10/23/24 23:07 ONCE PRN adequate visualization Protocol Sertraline HCl 100 mg 10/21/24 09:00 10/21/24 10:40 Sertraline Hcl 50 Mg Tablet PO 100 mg DAILY [facility] Administration Radiology Results: ITS Impressions Head CT 10/20/24 19:06 IMPRESSION: No acute intracranial process. Chest X-Ray 10/20/24 19:20 IMPRESSION: No focal infiltrate or effusion. Knee X-Ray 10/20/24 19:23 IMPRESSION: No acute osseous finding in the right knee. No radiographic evidence of hardware related complication. Hip/Pelvis X-Ray 10/20/24 22:35 IMPRESSION: No acute osseous finding in the pelvis or left hip. Labs Labs: Laboratory Results - last 24 hr 10/20/24 10/20/24 10/21/24 17:45 22:46 02:50 WBC 6.2 RBC 4.44 Hgb 13.8 Hct 41.9 MCV 94.4 MCH 31.1 MCHC 32.9 RDW 14.9 H Plt Count 163 MPV 11.0 H Immature Gran % (Auto) 0.3 Neut % (Auto) 73.5 H Lymph % (Auto) 18.3 [place] % (Auto) 6.3 Eos % (Auto) 1.3 Baso % (Auto) 0.3 Lymph # (Auto) 1.13 [place] # (Auto) 0.4 Eos # (Auto) 0.1 Baso # (Auto) 0.0 Abs Immat Gran (auto) 0.02 Absolute Neuts (auto) 4.5 Absolute Nucleated RBC 0.000 Nucleated RBC % 0.0 PT 14.1 INR 1.1 APTT 23.5 Sodium 140 Potassium 4.0 Chloride 102 Carbon Dioxide 27 Anion Gap 11 BUN 23 H Creatinine 0.72 Estim Creat Clear Calc 77 Estimated GFR > 60 Glucose 134 H Calcium 8.9 Magnesium 2.1 Total Bilirubin 0.6 AST 33 ALT 38 H Alkaline Phosphatase 131 H Troponin I 0.042 H* 0.172 H* D 0.125 H* D NT-Pro-B Natriuret Pep 80 Total Protein 8.0 Albumin 4.7 TSH (Reflex) 0.107 L Free T4 2.53 H Urine Color Yellow Urine Appearance Clear Urine pH 5.5 Ur Specific [place] 1.009 Urine Protein Negative Urine Glucose (UA) Negative Urine Ketones Negative Ur Blood (Man) Negative Urine Nitrate Negative Urine Bilirubin Negative Urine Urobilinogen 0.2 Leukocyte Esterase Rfl Trace H Urine RBC 0-2 Urine WBC 0-5 Ur Squamous Epith Cells None seen Urine Bacteria None seen Urine Casts 0-2
--- NOTE | 2024-10-21 12:42 | ADMGEN ---
This patient, Lexie Avery, was admitted to IMU Room 206-02 @ 1240. Patient/family oriented to hospital policies and general routines including ID bracelet, bed and alarms, visiting hours, pain management, procedures, bathroom and other care routines, personal items, smoking policy, room service/diet, and visiting hours. Information on how to activate the Rapid Response Team has been discussed. Patient/Family are encouraged to report perceived risks to care and to ask questions if they do not understand what they are told or what they should do.
--- NOTE | 2024-10-21 17:05 | P.CONCA_ITS ---
Assessment and Plan Assessment and plan (1) Syncope: Qualifiers: Syncope type: unspecified Qualified Code(s): R55 - Syncope and collapse Code(s): R55 - Syncope and collapse Status: Acute Assessment and Plan: : She does have some mild bradycardia but I do not think she is passing after bradycardia. Will keep her on telemetry however. Will check a 2D echocardiogram Doppler is was carotid artery ultrasound but it sounds as if her syncopal episodes are predominantly related to her blood pressure, orthostasis or a combination of dehydration/poor eating habits in the process of losing significant weight over short period of time. I am going to discontinue amlodipine completely. Will continue check her blood pressure as well as keep on telemetry monitoring. Cannot exclude seizure activity also especially given the most recent episode that brought her to the hospital. Seizure would explain the elevated troponins also. (2) Essential hypertension: Code(s): I10 - Essential (primary) hypertension Status: Acute Assessment and Plan: Will discontinue amlodipine since she has had significant weight loss and BP appears to be controlled (3) Elevated troponin: Code(s): R79.89 - Other specified abnormal findings of blood chemistry Status: Acute Assessment and Plan: 2D echocardiogram Doppler is ordered. Aspirin 81 mg p.o. daily for now and continue atorvastatin 40 mg daily. Neurology to see and if seizure is a likelihood for her most recent episode, that would explain her troponin elevation or even significant hypotension could explain at also. Will follow up on other test before making further recommendations. She did have a negative stress about 2 months ago (4) Weight loss: Code(s): R63.4 - Abnormal weight loss Status: Acute Assessment and Plan: On supplements and other diet and not eating or drinking well History of Present Illness History of Present Illness Consult date/time: 10/21/24 17:05 Requesting physician: Bunny Portillo MD Consult reason: Other (Elevated troponin, syncope) Reason For Visit: Syncope Narrative: Date of service 10/21/2024 Reason for consultation: Elevated troponin, syncope Requesting provider: Dr. 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 She sees Dr. Penelope Delacruz at [facility]. She had a stress test couple months ago prior to her thyroidectomy which was normal with ejection fraction 66%. Chest or a Holter monitor and her average heart rate was in the 50s. Minimum heart rate 35 beats per minute and it was thought that possibly her CPAP need to be adjusted. Patient has had a couple of episodes of syncope or near syncope. On July 03 she had syncopal episode should carpal. She went in for thyroid ultrasound and biopsy. She had not eaten or drank much that day and when she was shopping. Shortly thereafter while caring some boxes she passed out. Next thing she remembers is being in the ambulance and she was in [place]. She was thought to be dehydrated she followed up with her primary wastewater treatment plant instructor. On September 23 she stood up again had not 8 or drink significantly. She was dizzy upon standing and nearly passed out. On 08/30/2024 she had a thyroidectomy and had radiation iodine treatment in September 2024. She is now on levothyroxine. On 11/01 1024 she had headache, lightheadedness and felt palpitations. That was transient. Yesterday our she felt lightheaded she had not been eating or drinking routinely. She has been on a diet and a multitude of supplements and has lost over 40 lb. Her amlodipine had been decreased. Her daughter yesterday for her to her drop a rodriguez and whenever she got to her mother she saw her mother shaking and foaming at the mouth. She came to the hospital for further workup and evaluation. Patient actually denies any chest pain. She has some occasional palpitations which she describes as a flutter which last for secondary 2. She did have some shortness of breath that has improved with weight loss. No edema, paroxysmal nocturnal dyspnea. She had had no previous episodes of syncope prior to her diet changes, supplements, weight loss. In the process of workup her troponins were minimally elevated. EKG was unremarkable Review of Systems 2 Review of Systems: All systems reviewed & are unremarkable except as noted in HPI and below Constitutional: Constitutional: Denies lethargy Eyes: Eyes: Denies blurry vision ENT: Denies dysphagia Cardiovascular: Cardiovascular: Denies chest pain Respiratory: Respiratory: Denies dyspnea on exertion Gastrointestinal: Gastrointestinal: Denies abdominal pain Genitourinary: Genitourinary: Denies hematuria Musculoskeletal: Musculoskeletal: Denies back pain Integumentary/Breasts: Skin/Breast: Denies erythema Neurologic: Denies vertigo Psychiatric: Psychiatric: Denies anxiety Endocrine: Endocrine: Denies excessive sweating Hematologic/Lymphatic: Hematologic/Lymphatic: Denies easy bleeding Allergic/Immunologic: Allergic/Immunologic: Denies lip swelling PMFSH Past Medical History Medical History (Updated 10/21/24 @ 17:12 by Kendall Win MD) Weight loss Essential hypertension Family History Family History Other Diabetes mellitus Family history of malignant neoplasm Hypertension Social History Social History Smoking status: Never smoker Alcohol intake: never Substance use: never Substance use type: does not use Do You Feel Safe in your Home?: Yes Lack of Transportation: No Lack of Food: Never True Current Housing: I Have Housing Concerned About Future Housing: No Difficulty Paying Gas/Electric Bills: No Difficulty Paying for Meds: No Currently Unemployed: No Education: Bachelor's Degree Difficulty w/ Childcare or Family Care: No Spiritual care concerns: Yes (Jehovah Witness) Meds Home Medications and Allergies Home Medications ?Medication ?Instructions ?Recorded ?Confirmed ?Type acetaminophen 325 mg tablet 650 mg PO Q6H PRN pain 10/21/24 10/21/24 History (Tylenol) amlodipine 5 mg tablet 5 mg PO ONCE PRN increased blood 10/21/24 10/21/24 History pressure atorvastatin 40 mg tablet 40 mg PO DAILY 10/21/24 10/21/24 History cholecalciferol (vitamin D3) 125 5,000 unit PO DAILY 10/21/24 10/21/24 History mcg (5,000 unit) tablet (Vitamin D3) levothyroxine 175 mcg tablet 175 mcg PO DAILY 10/21/24 10/21/24 History sertraline 100 mg tablet 100 mg PO DAILY 10/21/24 10/21/24 History Allergies Allergy/AdvReac Type Severity Reaction Status Date / Time aspirin AdvReac Unknown upset Verified 10/21/24 13:01 stomach Vital Signs Vital Signs - 24 hr 10/20/24 17:11 10/20/24 17:23 10/20/24 17:25 Temperature 36.6 C Pulse Rate 86 Respiratory Rate Blood Pressure 139/107 H Pulse Oximetry 99 Oxygen Delivery Room Air Room Air Room Air 10/20/24 17:31 10/20/24 17:47 10/20/24 18:01 Temperature Pulse Rate 83 78 83 Respiratory Rate 20 14 28 H Blood Pressure 145/89 H 130/74 145/89 H Pulse Oximetry 99 100 100 Oxygen Delivery 10/20/24 18:17 10/20/24 18:32 10/20/24 19:46 Temperature Pulse Rate 80 79 79 Respiratory Rate 14 20 14 Blood Pressure 145/78 H 150/69 H 144/66 H Pulse Oximetry 99 100 98 Oxygen Delivery 10/20/24 20:16 10/20/24 20:32 10/20/24 20:46 Temperature Pulse Rate 77 74 81 Respiratory Rate 16 19 18 Blood Pressure 147/73 H 142/61 H 142/71 H Pulse Oximetry 97 98 98 Oxygen Delivery 10/20/24 21:01 10/20/24 21:16 10/20/24 21:31 Temperature Pulse Rate 77 79 78 Respiratory Rate 17 14 18 Blood Pressure 139/65 144/72 H 145/71 H Pulse Oximetry 97 96 98 Oxygen Delivery 10/20/24 21:47 10/20/24 22:01 10/20/24 22:16 Temperature Pulse Rate 82 76 81 Respiratory Rate 19 18 Blood Pressure 134/68 129/50 L 125/69 Pulse Oximetry 99 99 99 Oxygen Delivery 10/20/24 22:31 10/20/24 22:46 10/20/24 23:01 Temperature Pulse Rate 79 76 78 Respiratory Rate 6 L 14 Blood Pressure 125/66 120/77 131/57 L Pulse Oximetry 99 99 98 Oxygen Delivery 10/20/24 23:16 10/20/24 23:32 10/20/24 23:46 Temperature Pulse Rate 75 83 77 Respiratory Rate 18 14 16 Blood Pressure 123/59 L 143/88 H 131/65 Pulse Oximetry 98 99 99 Oxygen Delivery 10/21/24 00:17 10/21/24 00:25 10/21/24 00:46 Temperature Pulse Rate 76 66 Respiratory Rate 24 H 22 H Blood Pressure 131/66 131/68 Pulse Oximetry 99 99 Oxygen Delivery CPAP 10/21/24 01:01 10/21/24 01:16 10/21/24 01:31 Temperature Pulse Rate 63 68 68 Respiratory Rate 15 16 20 Blood Pressure 131/65 124/68 128/68 Pulse Oximetry 100 98 99 Oxygen Delivery 10/21/24 01:32 10/21/24 01:46 10/21/24 02:01 Temperature Pulse Rate 64 60 Respiratory Rate 18 18 Blood Pressure 133/71 137/69 Pulse Oximetry 98 100 100 Oxygen Delivery CPAP 10/21/24 02:17 10/21/24 02:31 10/21/24 02:47 Temperature Pulse Rate 56 L 64 62 Respiratory Rate 15 16 16 Blood Pressure 120/57 L 121/68 122/70 Pulse Oximetry 98 100 99 Oxygen Delivery 10/21/24 03:01 10/21/24 03:16 10/21/24 03:31 Temperature Pulse Rate 59 L 63 57 L Respiratory Rate 15 13 16 Blood Pressure 128/64 136/68 126/71 Pulse Oximetry 99 100 100 Oxygen Delivery 10/21/24 03:47 10/21/24 04:17 10/21/24 05:01 Temperature Pulse Rate 63 89 68 Respiratory Rate 12 16 19 Blood Pressure 136/62 132/77 123/64 Pulse Oximetry 99 98 Oxygen Delivery 10/21/24 05:46 10/21/24 06:32 10/21/24 07:57 Temperature Pulse Rate 62 66 Respiratory Rate 16 19 Blood Pressure 132/67 145/63 H Pulse Oximetry 100 99 Oxygen Delivery Room Air 10/21/24 07:57 10/21/24 10:08 10/21/24 10:47 Temperature 36.6 C Pulse Rate 65 83 68 Respiratory Rate 18 20 19 Blood Pressure 143/77 H 136/67 144/71 H Pulse Oximetry 99 98 100 Oxygen Delivery 10/21/24 12:55 10/21/24 13:50 10/21/24 14:05 Temperature 37.2 C Pulse Rate 73 75 74 Respiratory Rate 16 20 Blood Pressure 112/40 L 98/73 L 128/56 L Pulse Oximetry 97 Oxygen Delivery 10/21/24 14:10 10/21/24 14:40 10/21/24 16:00 Temperature 37.3 C Pulse Rate 67 55 L 55 L Respiratory Rate 16 Blood Pressure 114/62 105/62 Pulse Oximetry 99 Oxygen Delivery Exam 2 Narrative: Alert oriented appears to be in no acute distress. Appears stated age Const: General: comfortable and no acute distress HENMT: Ears: TM's normal bilaterally Face/Nose/Sinus: Normal nares present Eyes: General: appearance normal, both eyes and all related structures S clera: sclerae normal Neck: Neck: supple and no JVD Chest: Other: No reproducible chest wall pain to palpation Resp: Effort & Inspection: normal respiratory effort Auscultation: clear to auscultation bilaterally Cardio: Rate: regular rate Rhythm: regular rhythm Heart sounds: no murmurs GI: Inspection: non-distended GI Palp: Yes Soft to palpation A uscultation: normal bowel sounds Skin: General skin exam: normal color Neuro: Speech: normal speech Motor exam (neuro): 5/5 motor strength present throughout Extrem: General: normal to inspection Psych: Mental Status: mental status grossly normal Affect: normal affect Results Labs and Meds 10/20/24 17:45 10/20/24 17:45 Lab results: Cardiac Enzymes 10/20/24 10/20/24 10/21/24 Range/Units 17:45 22:46 02:50 AST 33 (14-36) U/L Troponin I 0.042 H* 0.172 H* D 0.125 H* D (0.000-0.034) ng/mL Coagulation 10/20/24 Range/Units 17:45 PT 14.1 (11.1-14.7) Seconds APTT 23.5 (22.3-36.8) Seconds CBC 10/20/24 Range/Units 17:45 WBC 6.2 (4.5-10.0) K/mm3 RBC 4.44 (4.2-5.4) M/mm3 Hgb 13.8 (12.0-15.0) g/dL Hct 41.9 (37.0-47.0) % Plt Count 163 (150-375) k/mm3 Lymph # (Auto) 1.13 (0.9-3.2) K/mm3 [place] # (Auto) 0.4 (0.1-0.6) K/mm3 Eos # (Auto) 0.1 (0-0.3) K/mm3 Baso # (Auto) 0.0 (0.0-0.1) K/mm3 Comprehensive Metabolic Panel 10/20/24 Range/Units 17:45 Sodium 140 (137-145) mmol/L Potassium 4.0 (3.4-5.0) mmol/L Chloride 102 (98-107) mmol/L Carbon Dioxide 27 (22-30) mmol/L BUN 23 H (7-17) mg/dL Creatinine 0.72 (0.7-1.0) mg/dL Glucose 134 H (65-110) mg/dL Calcium 8.9 (8.4-10.2) mg/dL AST 33 (14-36) U/L ALT 38 H (6-35) U/L Alkaline Phosphatase 131 H (38-126) U/L Total Protein 8.0 (6.3-8.2) g/dL Albumin 4.7 (3.5-5.1) g/dL Intake and Output 10/21/24 10/21/24 10/21/24 07:59 15:59 23:59 Intake Total 1000 Balance 1000 Intake: IV 1000 Sodium Chloride 0.9% IV 1,000 1000 ml @ 999 mls/hr IV CONT .Q1H1M [facility] Rx#:[id number] Patient Weight 10/21/24 23:59 Weight 110.8 kg EKG is personally reviewed and independently interpreted which are normal
--- NOTE | 2024-10-21 18:24 | P.CONNEU_ITS ---
Assessment and Plan Assessment and plan (1) Seizure disorder: Code(s): G40.909 - Epilepsy, unspecified, not intractable, without status epilepticus Status: Acute Assessment and Plan: This of course has not been established as a diagnosis. Based upon the fact that since June and that has not been any other established diagnosis would suggest to keep this at a T this I would suggest an EEG and MRI of brain. CT scan of brain was performed on this admission which was normal. I will defer starting her empirically on anticonvulsant to [facility]. Her calcium and magnesium level were within normal range. (2) Elevated troponin: Code(s): R79.89 - Other specified abnormal findings of blood chemistry Status: Acute (3) Essential hypertension: Code(s): I10 - Essential (primary) hypertension Status: Acute Consult date: 10/21/24 HPI: Lexie Avery is a 68 year old female with history of unresponsiveness the last of which occurred yesterday for which she was brought to the hospital patient's daughter with whom she lives give me a description. The daughter found her sitting the kitchen floor unresponsive having jerking movement of her both upper limbs and foaming from the mouth. This lasted for about 2 minutes or so and it took her several made more minutes to get back to her normal senses during that time she was confused. The ambulance staff were called and she was a wondering why she needs to go to hospital for of note the patient was found to have thyroid cancer for which she has had a surgery on September 03. She has had 2 other spells 1 of which occurred on July 03 for which she was taken to [facility] and was thought to have dehydration and was referred to [facility]. She has a pending appointment next week over there. During the interim since another spell on 09/17/2014 but that up or apparently the minor spell. Patient does not have any significant warning. It was noted that her troponin levels were high and she is being seen by the primer supervisor. She also was talking about having surgery on both knees which left her with some problems and she is coping with them. The patient follows of at [facility] for thyroid cancer. Review of Systems 2 Review of Systems: All systems reviewed & are unremarkable except as noted in HPI and below PMFSH Past Medical History Medical History (Updated 10/21/24 @ 18:32 by Cheryl Heath MD) Seizure disorder Weight loss Essential hypertension Family History Family History Other Diabetes mellitus Family history of malignant neoplasm Hypertension Social History Social History Smoking status: Never smoker Alcohol intake: never Substance use: never Substance use type: does not use Do You Feel Safe in your Home?: Yes Lack of Transportation: No Lack of Food: Never True Current Housing: I Have Housing Concerned About Future Housing: No Difficulty Paying Gas/Electric Bills: No Difficulty Paying for Meds: No Currently Unemployed: No Education: Bachelor's Degree Difficulty w/ Childcare or Family Care: No Spiritual care concerns: Yes (Jehovah Witness) Meds Home Medications and Allergies Home Medications ?Medication ?Instructions ?Recorded ?Confirmed ?Type acetaminophen 325 mg tablet 650 mg PO Q6H PRN pain 10/21/24 10/21/24 History (Tylenol) amlodipine 5 mg tablet 5 mg PO ONCE PRN increased blood 10/21/24 10/21/24 History pressure atorvastatin 40 mg tablet 40 mg PO DAILY 10/21/24 10/21/24 History cholecalciferol (vitamin D3) 125 5,000 unit PO DAILY 10/21/24 10/21/24 History mcg (5,000 unit) tablet (Vitamin D3) levothyroxine 175 mcg tablet 175 mcg PO DAILY 10/21/24 10/21/24 History sertraline 100 mg tablet 100 mg PO DAILY 10/21/24 10/21/24 History Allergies Allergy/AdvReac Type Severity Reaction Status Date / Time aspirin AdvReac Unknown upset Verified 10/21/24 13:01 stomach Vital Signs Vital Signs - 24 hr 10/20/24 18:32 10/20/24 19:46 10/20/24 20:16 Temperature Pulse Rate 79 79 77 Respiratory Rate 20 14 16 Blood Pressure 150/69 H 144/66 H 147/73 H Pulse Oximetry 100 98 97 Oxygen Delivery 10/20/24 20:32 10/20/24 20:46 10/20/24 21:01 Temperature Pulse Rate 74 81 77 Respiratory Rate 19 18 17 Blood Pressure 142/61 H 142/71 H 139/65 Pulse Oximetry 98 98 97 Oxygen Delivery 10/20/24 21:16 10/20/24 21:31 10/20/24 21:47 Temperature Pulse Rate 79 78 82 Respiratory Rate 14 18 19 Blood Pressure 144/72 H 145/71 H 134/68 Pulse Oximetry 96 98 99 Oxygen Delivery 10/20/24 22:01 10/20/24 22:16 10/20/24 22:31 Temperature Pulse Rate 76 81 79 Respiratory Rate 18 Blood Pressure 129/50 L 125/69 125/66 Pulse Oximetry 99 99 99 Oxygen Delivery 10/20/24 22:46 10/20/24 23:01 10/20/24 23:16 Temperature Pulse Rate 76 78 75 Respiratory Rate 6 L 14 18 Blood Pressure 120/77 131/57 L 123/59 L Pulse Oximetry 99 98 98 Oxygen Delivery 10/20/24 23:32 10/20/24 23:46 10/21/24 00:17 Temperature Pulse Rate 83 77 76 Respiratory Rate 14 16 24 H Blood Pressure 143/88 H 131/65 131/66 Pulse Oximetry 99 99 99 Oxygen Delivery 10/21/24 00:25 10/21/24 00:46 10/21/24 01:01 Temperature Pulse Rate 66 63 Respiratory Rate 22 H 15 Blood Pressure 131/68 131/65 Pulse Oximetry 99 100 Oxygen Delivery CPAP 10/21/24 01:16 10/21/24 01:31 10/21/24 01:32 Temperature Pulse Rate 68 68 Respiratory Rate 16 20 Blood Pressure 124/68 128/68 Pulse Oximetry 98 99 98 Oxygen Delivery CPAP 10/21/24 01:46 10/21/24 02:01 10/21/24 02:17 Temperature Pulse Rate 64 60 56 L Respiratory Rate 18 18 15 Blood Pressure 133/71 137/69 120/57 L Pulse Oximetry 100 100 98 Oxygen Delivery 10/21/24 02:31 10/21/24 02:47 10/21/24 03:01 Temperature Pulse Rate 64 62 59 L Respiratory Rate 16 16 15 Blood Pressure 121/68 122/70 128/64 Pulse Oximetry 100 99 99 Oxygen Delivery 10/21/24 03:16 10/21/24 03:31 10/21/24 03:47 Temperature Pulse Rate 63 57 L 63 Respiratory Rate 13 16 12 Blood Pressure 136/68 126/71 136/62 Pulse Oximetry 100 100 99 Oxygen Delivery 10/21/24 04:17 10/21/24 05:01 10/21/24 05:46 Temperature Pulse Rate 89 68 62 Respiratory Rate 16 19 16 Blood Pressure 132/77 123/64 132/67 Pulse Oximetry 98 Oxygen Delivery 10/21/24 06:32 10/21/24 07:57 10/21/24 07:57 Temperature Pulse Rate 66 65 Respiratory Rate 19 18 Blood Pressure 145/63 H 143/77 H Pulse Oximetry 100 99 99 Oxygen Delivery Room Air 10/21/24 10:08 10/21/24 10:47 10/21/24 12:55 Temperature 97.9 F 99 F Pulse Rate 83 68 73 Respiratory Rate 20 19 16 Blood Pressure 136/67 144/71 H 112/40 L Pulse Oximetry 98 100 97 Oxygen Delivery 10/21/24 13:50 10/21/24 14:05 10/21/24 14:10 Temperature Pulse Rate 75 74 67 Respiratory Rate 20 Blood Pressure 98/73 L 128/56 L 114/62 Pulse Oximetry Oxygen Delivery 10/21/24 14:40 10/21/24 16:00 10/21/24 16:00 Temperature 99.1 F Pulse Rate 55 L 55 L 63 Respiratory Rate 16 Blood Pressure 105/62 Pulse Oximetry 99 Oxygen Delivery Exam 2 Const: General: cooperative, well developed and alert O rientation/consciousness: patient oriented x3 HENMT: Head: atraumatic Mouth: Yes oropharynx normal Other: Mallampati score was 3/ 4 Eyes: Alignment and Position: position normal Pupils: Equal, round and reactive pupils present EOM: EOMs intact bilaterally Neck: Neck: supple Resp: Effort & Inspection: normal respiratory effort Neuro: General: patient oriented x3 Cranial nerves: Yes CN's II-XII intact bilaterally, Yes facial sensation intact/muscles of mastication intact, Yes Equal, round and reactive pupils present, Yes facial symmetry and Yes Midline tongue present Cognition (Neuro): normal cognition Speech: normal speech Motor exam (neuro): 5/5 motor strength present throughout Sensory Exam: n ormal sensation Coordination: [id number] test normal and Normal rapid alternating movements of the distal upper extremity present (Neuro) Results Labs 10/20/24 17:45 10/20/24 17:45 Labs: Cardiac Enzymes 10/20/24 10/20/24 10/21/24 Range/Units 17:45 22:46 02:50 Troponin I 0.042 H* 0.172 H* D 0.125 H* D (0.000-0.034) ng/mL Urine 10/20/24 Range/Units 22:46 Urine Color Yellow (Yellow) Urine Appearance Clear (Clear) Urine pH 5.5 (5.0-9.0) Ur Specific [place] 1.009 (1.001-1.035) Urine Protein Negative (Negative) mg/dL Urine Glucose (UA) Negative (Negative) mg/dL
[2024-10-22] VITALS (14 sets, daily range): BP systolic 111–143; BP diastolic 54–78; PULSE 41–86; RESP 14–20; TEMP 36.4–37.2; O2SAT 98–100
[2024-10-22 04:59] LABS: Basophils Percent Auto 0.5 % (0.2-1.2); Eosinophils Absolute Auto 0.1 K/mm3 (0-0.3); Eosinophils Percent Auto 1.5 % (0-4.4); Hematocrit 35.4 % (37.0-47.0); Hemoglobin 11.5 g/dL (12.0-15.0); Immature Granulocyte Absolute 0.01 K/mm3 (0.00-0.031); Immature Granulocyte Percent A 0.2 % (0-0.5); Immature Platelet Fraction Pct 5.4 % (0.9-11.2); Lymphocytes Absolute Auto 1.05 K/mm3 (0.9-3.2); Lymphocytes Percent Auto 25.5 % (18.3-44.2); Mean Corpuscular HGB Conc 32.5 g/dl (32-36); Mean Corpuscular Hemoglobin 31.4 pg (26-34); Mean Corpuscular Volume 96.7 fl (80-100); Mean Platelet Volume 10.9 fl (7.4-10.4); Monocytes Absolute Auto 0.5 K/mm3 (0.1-0.6); Monocytes Percent Auto 12.9 % (2.6-8.5); Neutrophils Absolute Auto 2.4 K/mm3 (1.3-6.7); Neutrophils Percent Auto 59.4 % (45.5-73.1); Platelet Count Result 128 k/mm3 (150-375); Red Blood Count 3.66 M/mm3 (4.2-5.4); White Blood Count 4.1 K/mm3 (4.5-10.0)
[2024-10-22 05:21] LABS: Alanine Aminotransferase 57 U/L (6-35); Albumin Level 3.5 g/dL (3.5-5.1); Alkaline Phosphatase 108 U/L (38-126); Anion Gap 4 mmol/L (4-12); Aspartate Amino Transferase 52 U/L (14-36); Bilirubin,Total 1.1 mg/dL (0.2-1.3); Blood Urea Nitrogen 8 mg/dL (7-17); Calcium 8.1 mg/dL (8.4-10.2); Carbon Dioxide 28 mmol/L (22-30); Chloride 108 mmol/L (98-107); Estimated CRCL calculation 110 ml/min; Estimated Glomerular Filt Rate > 60; Glucose 93 mg/dL (65-110); Potassium 3.5 mmol/L (3.4-5.0); Sodium 140 mmol/L (137-145)
[2024-10-22] MEDS: LEVOTHYROXINE SODIUM 50 MCG TABLET PO (06:24)
[2024-10-22] MEDS: LEVOTHYROXINE SODIUM 125 MCG TABLET PO (06:24)
[2024-10-22] MEDS: SERTRALINE HCL 50 MG TABLET 100 MG PO (09:48)
[2024-10-22] MEDS: ATORVASTATIN 40 MG TABLET PO (09:48)
[2024-10-22] MEDS: ENOXAPARIN 40 MG/0.4 ML SYRINGE SUB-Q (09:48)
[2024-10-22] MEDS: ASPIRIN 81 MG ENTERIC TABLET PO (09:49)
--- NOTE | 2024-10-22 12:22 | P.PNCA_ITS ---
Progress Note: A&P Assessment and Plan (1) Syncope: Qualifiers: Syncope type: unspecified Qualified Code(s): R55 - Syncope and collapse Code(s): R55 - Syncope and collapse Status: Acute Assessment and Plan: : She does have some mild bradycardia but I do not think she is passing after bradycardia. She was orthostatic with systolic blood pressure dropping about 30 points. alarm security or surveillance monitor showing bradycardia around 40 at night while sleeping. Echocardiogram is pending. Carotid ultrasound was unremarkable. Again, will stop amlodipine completely. Fluid hydration. Advised against her supplements and encourage hydration. Continue check orthostatic BP. EEG and MRI pending (2) Essential hypertension: Code(s): I10 - Essential (primary) hypertension Status: Acute Assessment and Plan: Will discontinue amlodipine since she has had significant weight loss and BP appears to be controlled (3) Elevated troponin: Code(s): R79.89 - Other specified abnormal findings of blood chemistry Status: Acute Assessment and Plan: 2D echocardiogram Doppler is pending. Aspirin 81 mg p.o. daily for now and continue atorvastatin 40 mg daily. Neurology to see and if seizure is a likelihood for her most recent episode, that would explain her troponin elevation or even significant hypotension could explain at also. She did have a negative stress about 2 months ago (4) Weight loss: Code(s): R63.4 - Abnormal weight loss Status: Acute Assessment and Plan: On supplements and other diet and not eating or drinking well Subjective Date/time seen: 10/22/24 12:22 Interval history: 68-year-old admitted for syncope, elevated troponins, possible seizure Follow-up note 10/22/2024: Feels good. Swelling better. No chest pain or shortness of breath. Review of Systems Review of Systems: All systems reviewed & are unremarkable except as noted in HPI and below Constitutional: Constitutional: Denies excessive sweating and Denies lethargy Eyes: Eyes: Denies blurry vision ENT: Denies dysphagia, Denies vertigo and Denies lip swelling Cardiovascular: Cardiovascular: Denies chest pain and Denies dyspnea on exertion Respiratory: Respiratory: Denies dyspnea on exertion Gastrointestinal: Gastrointestinal: Denies abdominal pain and Denies dysphagia Genitourinary: Genitourinary: Denies hematuria Musculoskeletal: Musculoskeletal: Denies back pain Integumentary/Breasts: Skin/Breast: Denies erythema Neurologic: Denies vertigo Psychiatric: Psychiatric: Denies anxiety Endocrine: Endocrine: Denies excessive sweating Hematologic/Lymphatic: Hematologic/Lymphatic: Denies easy bleeding Allergic/Immunologic: Allergic/Immunologic: Denies lip swelling Exam Narrative: Alert oriented appears to be in no acute distress. Appears stated age Const: General: comfortable and no acute distress HENMT: Ears: TM's normal bilaterally Face/Nose/Sinus: Normal nares present Eyes: General: appearance normal, both eyes and all related structures Sclera: sclerae normal Neck: Neck: supple and no JVD Chest: Other: No reproducible chest wall pain to palpation Resp: Effort & Inspection: normal respiratory effort Auscultation: clear to auscultation bilaterally Cardio: Rate: regular rate Rhythm: regular rhythm Heart sounds: no murmurs GI: Inspection: non-distended Auscultation: normal bowel sounds Skin: General skin exam: normal color Neuro: Speech: normal speech Motor exam (neuro): 5/5 motor strength present throughout Extrem: General: normal to inspection Psych: Mental Status: mental status grossly normal Affect: normal affect Objective Data Vital Signs Vital Signs: Vital Signs - 24 hr 10/21/24 12:55 10/21/24 13:50 10/21/24 14:05 Temperature 37.2 C Pulse Rate 73 75 74 Respiratory Rate 16 20 Blood Pressure 112/40 L 98/73 L 128/56 L Pulse Oximetry 97 Oxygen Delivery 10/21/24 14:10 10/21/24 14:40 10/21/24 16:00 Temperature 37.3 C Pulse Rate 67 55 L 55 L Respiratory Rate 16 Blood Pressure 114/62 105/62 Pulse Oximetry 99 Oxygen Delivery 10/21/24 16:00 10/21/24 20:00 10/21/24 20:00 Temperature 36.7 C Pulse Rate 63 50 L Respiratory Rate 18 Blood Pressure 127/63 127/63 Pulse Oximetry 100 Oxygen Delivery 10/21/24 20:00 10/21/24 20:25 10/21/24 21:12 Temperature Pulse Rate 47 L 47 L Respiratory Rate Blood Pressure 133/75 Pulse Oximetry Oxygen Delivery CPAP 10/21/24 21:12 10/21/24 22:00 10/22/24 00:00 Temperature 36.6 C Pulse Rate 49 L 61 Respiratory Rate 18 Blood Pressure 107/91 H 119/78 Pulse Oximetry 100 Oxygen Delivery 10/22/24 00:00 10/22/24 01:51 10/22/24 02:00 Temperature Pulse Rate 47 L 45 L 46 L Respiratory Rate Blood Pressure Pulse Oximetry Oxygen Delivery CPAP 10/22/24 04:00 10/22/24 04:00 10/22/24 06:00 Temperature 36.7 C Pulse Rate 43 L 43 L 41 L Respiratory Rate 18 Blood Pressure 124/78 Pulse Oximetry 100 Oxygen Delivery 10/22/24 08:04 10/22/24 08:04 10/22/24 08:05 Temperature 36.8 C 36.8 C Pulse Rate 60 60 71 Respiratory Rate 20 20 Blood Pressure 139/60 139/60 139/63 Pulse Oximetry 100 100 98 Oxygen Delivery Intake/Output Intake/Output: Intake & Output 10/19/24 10/20/24 10/21/24 10/22/24 23:59 23:59 23:59 23:59 Intake Total 1000 1240 540 Output Total 300 1550 Balance 1000 940 -1010 Meds/Results Medications: Active Medications Generic Name Dose Route Start Last Admin Trade Name Freq PRN Reason Stop Dose Admin Acetaminophen 650 mg 10/21/24 08:25 10/21/24 17:44 Acetaminophen 325 Mg Tablet PO 650 mg Q6H PRN Administration Mild Pain (1-3) or Fever Aspirin 81 mg 10/22/24 09:00 10/22/24 09:49 Aspirin 81 Mg Enteric Tablet PO 81 mg QAM DREW Administration Atorvastatin Calcium 40 mg 10/21/24 09:00 10/22/24 09:48 Atorvastatin 40 Mg Tablet PO 40 mg DAILY DREW Administration Enoxaparin Sodium 40 mg 10/22/24 09:00 10/22/24 09:48 Enoxaparin 40 Mg/0.4 Ml Syringe SUB-Q 40 mg DAILY DREW Administration Levothyroxine Sodium 125 mcg 10/22/24 06:30 10/22/24 06:24 Levothyroxine Sodium 125 Mcg Tablet PO 125 mcg DAILY@0630 DREW Administration Levothyroxine Sodium 50 mcg 10/22/24 06:30 10/22/24 06:24 Levothyroxine Sodium 50 Mcg Tablet PO 50 mcg DAILY@0630 DREW Administration Perflutren Lipid Microsphere 0 ml 10/20/24 23:06 Perflutren Lipid Microspheres 1.5 Ml Vial Diluted To 10 Ml Total Volume IV PUSH 10/23/24 23:07 ONCE PRN adequate visualization Protocol Perflutren Lipid Microsphere 0 ml 10/21/24 13:02 Perflutren Lipid Microspheres 1.5 Ml Vial Diluted To 10 Ml Total Volume IV PUSH 10/24/24 13:03 ONCE PRN adequate visualization Protocol Sertraline HCl 100 mg 10/21/24 09:00 10/22/24 09:48 Sertraline Hcl 50 Mg Tablet PO 100 mg DAILY DREW Administration Radiology Results: ITS Impressions Head CT 10/20/24 19:06 IMPRESSION: No acute intracranial process. Chest X-Ray 10/20/24 19:20 IMPRESSION: No focal infiltrate or effusion. Knee X-Ray 10/20/24 19:23 IMPRESSION: No acute osseous finding in the right knee. No radiographic evidence of hardware related complication. Hip/Pelvis X-Ray 10/20/24 22:35 IMPRESSION: No acute osseous finding in the pelvis or left hip. Carotid Doppler Study 10/22/24 10:41 IMPRESSION: 1. Less than 50% stenosis in the right internal carotid artery. 2. Less than 50% stenosis in the left internal carotid artery. Labs Labs: Laboratory Results - last 24 hr 10/22/24 04:44 WBC 4.1 L RBC 3.66 L Hgb 11.5 L Hct 35.4 L MCV 96.7 MCH 31.4 MCHC 32.5 RDW 15.0 H Plt Count 128 L MPV 10.9 H Immature Gran % (Auto) 0.2 Neut % (Auto) 59.4 Lymph % (Auto) 25.5 [place] % (Auto) 12.9 H Eos % (Auto) 1.5 Baso % (Auto) 0.5 Lymph # (Auto) 1.05 [place] # (Auto) 0.5 Eos # (Auto) 0.1 Baso # (Auto) 0.0 Abs Immat Gran (auto) 0.01 Absolute Neuts (auto) 2.4 Absolute Nucleated RBC 0.000 Nucleated RBC % 0.0 % Immature Plt Fraction 5.4 Sodium 140 Potassium 3.5 Chloride 108 H Carbon Dioxide 28 Anion Gap 4 BUN 8 D Creatinine 0.52 L Estim Creat Clear Calc 110 Estimated GFR > 60 Glucose 93 Calcium 8.1 L Magnesium 2.0 Total Bilirubin 1.1 AST 52 H ALT 57 H Alkaline Phosphatase 108 Total Protein 6.0 L Albumin 3.5
--- NOTE | 2024-10-22 12:38 | PM.IMPN ---
Progress Note: A&P Assessment and Plan (1) Elevated troponin: Code(s): R79.89 - Other specified abnormal findings of blood chemistry Status: Acute (2) Syncope: Qualifiers: Syncope type: unspecified Qualified Code(s): R55 - Syncope and collapse Code(s): R55 - Syncope and collapse Status: Acute (3) Morbid obesity with BMI of 45.0-49.9, adult: Code(s): E66.01 - Morbid (severe) obesity due to excess calories; Z68.42 - Body mass index [BMI] 45.0-49.9, adult Status: Acute (4) Weight loss: Code(s): R63.4 - Abnormal weight loss Status: Acute Plan This is a 68-year-old female who presents to the ED via EMS from home for syncope vs seizure. Patient's daughter is at bedside who assist with history. States she was in the basement when she heard a loud thud. She found her mother on the floor in the kitchen shaking her extremities and foaming at the mouth. States she was unconscious for approximately 2 minutes and contacted 911. When the patient woke up she seemed confused and disoriented for approximately 10 minutes. States she was able to say where she was and who she was, however she was having difficulty recalling the events that occurred and repeating questions. She took her blood pressure around 1:00 p.m. today and found it was 120s/80s. States shortly after she began feeling lightheaded while she was cooking in the kitchen. States she wanted to finish cooking so she could eat and was planning to retake her blood pressure, however unfortunately while cooking and she passed out. ED evaluation with laboratory workup showed no leukocytosis or anemia. Came panel was unremarkable. Magnesium is normal. CT head with no acute intracranial abnormality. X-ray bilateral knees unremarkable. X-ray left hip unremarkable. X-ray chest with no acute cardiopulmonary process. EKG showed sinus rhythm with sinus arrhythmia prolonged [place] interval to to 0 1 consistent with first-degree AV block normal QRS duration normal QTC. Troponin came back elevated at 0.042. Serial troponin was performed which showed 0.042-0.172-0.125. The patient states she has been taking her blood pressure regularly for the past several months as advised by her PCP because she has had 2 syncopal episodes in the past few months, first syncopal episode was in June and the 2nd was in September. She was advised to follow up outpatient with Cardiology Neurology after the syncopal episodes. States she has had a negative workup with Cardiology thus far. Stress test 08/2024 was negative. Holter showed some episodes of supraventricular tachycardia otherwise unremarkable. consulted cardiology. echo pending. telemetry with mild sinus bradycardia otherwise unremarakalb.e carotid ultrasound unremarkable. She also had MRI brain which showed microhemorrhages in cerebellar and frontal lobe. Findings suggestive of intracranial hypertension. She follows up with neurologist. No prior history of seizures. Neurology consulted. MRI and EEG ordered and pending. Elevated troponin placed on aspirin 81 mg daily Thyroid cancer status post thyroidectomy August 2024 on thyroid supplement. TSH mildly low with high T4 Bilateral knee pain history of bilateral knee replacement x-ray unremarkable Recent history of significant weight loss History of sleep apnea on CPAP Hypertension Hyperlipidemia DVT prophylaxis Lovenox Code status full code Subjective Date/time seen: 10/22/24 12:38 Interval history: no overnight events, left knee is feeling a bit better. has not walked yet. telemetry reviewed. overnigth bradycardia sinus noted Review of Systems Review of Systems: All systems reviewed & are unremarkable except as noted in HPI and below Exam Narrative: GENERAL: Well-appearing, well-nourished, and in no acute distress. HEAD: Normocephalic, atraumatic. EYES: PERRLA and EOMI. ENT: Nares clear, no rhinorrhea or epistaxis. Mucous membranes moist. CHEST: Clear to auscultation. No respiratory distress. HEART: Regular rate and rhythm. No murmur heard. Normal peripheral pulses. ABDOMEN: Soft, nontender, nondistended, normal active bowel sounds. EXTREMITIES: Diffuse tenderness to the knees on palpation bilaterally with no overlying skin changes or deformities. Limited active range of motion secondary to pain. Full passive range of motion. DP pulse 2 +. Sensation intact. Tenderness to the left hip with full active range of motion no obvious deformities SKIN: Warm, dry, no rash. NEURO: No focal deficits. Alert and oriented x3. Cranial nerves 2-12 intact. Strength 5/5 in BUE and BLE. Sensation intact throughout Objective Data Vital Signs Vital Signs: Vital Signs - 24 hr 10/21/24 12:55 10/21/24 13:50 10/21/24 14:05 Temperature 99 F Pulse Rate 73 75 74 Respiratory Rate 16 20 Blood Pressure 112/40 L 98/73 L 128/56 L Pulse Oximetry 97 Oxygen Delivery 10/21/24 14:10 10/21/24 14:40 10/21/24 16:00 Temperature 99.1 F Pulse Rate 67 55 L 55 L Respiratory Rate 16 Blood Pressure 114/62 105/62 Pulse Oximetry 99 Oxygen Delivery 10/21/24 16:00 10/21/24 20:00 10/21/24 20:00 Temperature 98.0 F Pulse Rate 63 50 L Respiratory Rate 18 Blood Pressure 127/63 127/63 Pulse Oximetry 100 Oxygen Delivery 10/21/24 20:00 10/21/24 20:25 10/21/24 21:12 Temperature Pulse Rate 47 L 47 L Respiratory Rate Blood Pressure 133/75 Pulse Oximetry Oxygen Delivery CPAP 10/21/24 21:12 10/21/24 22:00 10/22/24 00:00 Temperature 97.8 F Pulse Rate 49 L 61 Respiratory Rate 18 Blood Pressure 107/91 H 119/78 Pulse Oximetry 100 Oxygen Delivery 10/22/24 00:00 10/22/24 01:51 10/22/24 02:00 Temperature Pulse Rate 47 L 45 L 46 L Respiratory Rate Blood Pressure Pulse Oximetry Oxygen Delivery CPAP 10/22/24 04:00 10/22/24 04:00 10/22/24 06:00 Temperature 98.1 F Pulse Rate 43 L 43 L 41 L Respiratory Rate 18 Blood Pressure 124/78 Pulse Oximetry 100 Oxygen Delivery 10/22/24 08:04 10/22/24 08:04 10/22/24 08:05 Temperature 98.2 F 98.2 F Pulse Rate 60 60 71 Respiratory Rate 20 20 Blood Pressure 139/60 139/60 139/63 Pulse Oximetry 100 100 98 Oxygen Delivery Intake/Output Intake/Output: Intake & Output 10/19/24 10/20/24 10/21/24 10/22/24 23:59 23:59 23:59 23:59 Intake Total 1000 1240 540 Output Total 300 1550 Balance 1000 940 -1010 Meds/Results Medications: Active Medications Generic Name Dose Route Start Last Admin Trade Name Freq PRN Reason Stop Dose Admin Acetaminophen 650 mg 10/21/24 08:25 10/21/24 17:44 Acetaminophen 325 Mg Tablet PO 650 mg Q6H PRN Administration Mild Pain (1-3) or Fever Aspirin 81 mg 10/22/24 09:00 10/22/24 09:49 Aspirin 81 Mg Enteric Tablet PO 81 mg QAM DREW Administration Atorvastatin Calcium 40 mg 10/21/24 09:00 10/22/24 09:48 Atorvastatin 40 Mg Tablet PO 40 mg DAILY DREW Administration Enoxaparin Sodium 40 mg 10/22/24 09:00 10/22/24 09:48 Enoxaparin 40 Mg/0.4 Ml Syringe SUB-Q 40 mg DAILY DREW Administration Levothyroxine Sodium 125 mcg 10/22/24 06:30 10/22/24 06:24 Levothyroxine Sodium 125 Mcg Tablet PO 125 mcg DAILY@0630 DREW Administration Levothyroxine Sodium 50 mcg 10/22/24 06:30 10/22/24 06:24 Levothyroxine Sodium 50 Mcg Tablet PO 50 mcg DAILY@0630 DREW Administration Perflutren Lipid Microsphere 0 ml 10/20/24 23:06 Perflutren Lipid Microspheres 1.5 Ml Vial Diluted To 10 Ml Total Volume IV PUSH 10/23/24 23:07 ONCE PRN adequate visualization Protocol Perflutren Lipid Microsphere 0 ml 10/21/24 13:02 Perflutren Lipid Microspheres 1.5 Ml Vial Diluted To 10 Ml Total Volume IV PUSH 10/24/24 13:03 ONCE PRN adequate visualization Protocol Sertraline HCl 100 mg 10/21/24 09:00 10/22/24 09:48 Sertraline Hcl 50 Mg Tablet PO 100 mg DAILY DREW Administration Radiology Results: ITS Impressions Head CT 10/20/24 19:06 IMPRESSION: No acute intracranial process. Chest X-Ray 10/20/24 19:20 IMPRESSION: No focal infiltrate or effusion. Knee X-Ray 10/20/24 19:23 IMPRESSION: No acute osseous finding in the right knee. No radiographic evidence of hardware related complication. Hip/Pelvis X-Ray 10/20/24 22:35 IMPRESSION: No acute osseous finding in the pelvis or left hip. Carotid Doppler Study 10/22/24 10:41 IMPRESSION: 1. Less than 50% stenosis in the right internal carotid artery. 2. Less than 50% stenosis in the left internal carotid artery. Labs Labs: Laboratory Results - last 24 hr 10/22/24 04:44 WBC 4.1 L RBC 3.66 L Hgb 11.5 L Hct 35.4 L MCV 96.7 MCH 31.4 MCHC 32.5 RDW 15.0 H Plt Count 128 L MPV 10.9 H Immature Gran % (Auto) 0.2 Neut % (Auto) 59.4 Lymph % (Auto) 25.5 [place] % (Auto) 12.9 H Eos % (Auto) 1.5 Baso % (Auto) 0.5 Lymph # (Auto) 1.05 [place] # (Auto) 0.5 Eos # (Auto) 0.1 Baso # (Auto) 0.0 Abs Immat Gran (auto) 0.01 Absolute Neuts (auto) 2.4 Absolute Nucleated RBC 0.000 Nucleated RBC % 0.0 % Immature Plt Fraction 5.4 Sodium 140 Potassium 3.5 Chloride 108 H Carbon Dioxide 28 Anion Gap 4 BUN 8 D Creatinine 0.52 L Estim Creat Clear Calc 110 Estimated GFR > 60 Glucose 93 Calcium 8.1 L Magnesium 2.0 Total Bilirubin 1.1 AST 52 H ALT 57 H Alkaline Phosphatase 108 Total Protein 6.0 L Albumin 3.5
[2024-10-22] MEDS: ACETAMINOPHEN 325 MG TABLET 650 MG PO ×2 (14:00→20:50)
[2024-10-22] MEDS: CHOLECALCIFEROL 5,000 UNITS TABLET 5000 UNITS PO (14:00)
[2024-10-23] VITALS (10 sets, daily range): BP systolic 120–144; BP diastolic 59–87; PULSE 39–92; RESP 16–22; TEMP 36.6–36.8; O2SAT 96–100
--- NOTE | 2024-10-23 | ECHO_ITS ---
Patient Info Name: Lexie Avery Age: 68 years : 1955 Gender: Female Ht: 63 in Wt: 244 lbs BSA: 2.28 m2 HR: 46 bpm BP: 120 / 60 mmHg Technical Quality: Fair Exam Date: 10/23/2024 10:32 AM Exam Location: Echo Lab Patient Status: Outpatient Admit Date: 10/20/2024 Staff Ordering Physician: Bunny Portillo MD Compressor Station Chief Engineer: Amol Johansen RDCS Attending Provider: Arnoldo Adams MD Exam Type: CA echo doppler color flow Study Info Indications - SYNCOPE Complete two-dimensional, color flow and Doppler transthoracic echocardiogram is performed. Summary 1. Complete two-dimensional, color flow and Doppler transthoracic echocardiogram is performed. 2. Left ventricular systolic function is normal, estimated at 60-65%. 3. Left atrial chamber dimension is mildly enlarged. 4. There is trace mitral valve regurgitation. 5. No pulmonary hypertension, estimated pulmonary arterial systolic pressure is 31 mmHg. 6. There is mild tricuspid valve regurgitation. Left Ventricle Left ventricular chamber dimension is normal. Left ventricular systolic function is normal, estimated at 60-65%. There is no increased left ventricular wall thickness. Left ventricular septal wall motion is normal. The left ventricular diastolic function is indeterminate. Right Ventricle Right ventricular chamber dimension is normal. Right ventricular systolic function is normal. Left Atria Left atrial chamber dimension is mildly enlarged. Right Atria Right atrial chamber dimension is normal. Atrial Septum Intact interatrial septum visualized by color flow imaging. Aortic Valve The aortic valve is trileaflet. There is mild aortic valve sclerosis. There is no aortic valve stenosis. There is no aortic valve regurgitation. Pulmonic Valve The pulmonic valve is normal. There is no pulmonic valve stenosis. There is no pulmonic regurgitation. Mitral Valve The mitral valve has normal leaflets. There is no mitral valve stenosis. There is trace mitral valve regurgitation. Tricuspid Valve The tricuspid valve leaflets are normal. There is no significant tricuspid valve stenosis. There is mild tricuspid valve regurgitation. No pulmonary hypertension, estimated pulmonary arterial systolic pressure is 31 mmHg. Pericardium/Pleural The pericardium appears normal. There is no pericardial effusion. Inferior Vena Cava Normal inferior vena cava with <50% collapse upon inspiration consistent with Empty right atrial pressure, 10 mmHg. Aorta The aortic root size at the sinus of Valsalva is normal. The prox ascending aorta size is normal. Left Ventricular Outflow Tract Name Value Normal LVOT 2D LVOT Diameter 1.9 cm LVOT Doppler LVOT Peak Gradient 7 mmHg LVOT Mean Gradient 4 mmHg LVOT VTI 36 cm LVOT VTI/AV VTI Ratio 0.8 LVOT Stroke Volume 102 ml LVOT CO 8.1 l/min LVOT CI 3.9 l/min/m2 Pulmonic Valve Name Value Normal RVOT Doppler RVOT Peak Gradient 2 mmHg PV Doppler PV Peak Gradient 3 mmHg Mitral Valve Name Value Normal MV Doppler MV Peak Gradient 5 mmHg MV Mean Gradient 2 mmHg MV Decel Bacon 549 cm/s2 MV PHT 48 ms MV Area (PHT) 4.6 cm2 4.0-5.0 MV Area (Cont Eq VTI) 2.5 cm2 MV Diastolic Function MV E Peak Velocity 91 cm/s MV A Peak Velocity 66 cm/s MV E/A 1.4 MV Decel Time 166 ms MV Annular TDI MV E/e' (Septal) 8.6 <=8.0 MV E/e' (Lateral) 6.9 <=8.0 MV E/e' (Average) 7.7 Tricuspid Valve Name Value Normal TV Regurgitation Doppler TR Peak Velocity 229 cm/s TR Peak Gradient 21 mmHg Estimated PAP/RSVP RA Pressure 10 mmHg <=5 PA Systolic Pressure 31 mmHg <36 RV Systolic Pressure 31 mmHg <36 Aorta Name Value Normal Ascending Aorta Ao Root Diameter (MM) 2.9 cm Ao Root Diam Index (MM) 1.3 cm/m2 Aortic Valve Name Value Normal AV Doppler AV Peak Velocity 165 cm/s AV Peak Gradient 11 mmHg AV Mean Gradient 6 mmHg AV VTI 43 cm AV Area (Cont Eq VTI) 2.4 cm2 >=3.0 AV Area (Cont Eq Anderson) 2.3 cm2 AV Regurgitation 2D LVOT Area 2.9 cm2 Ventricles Name Value Normal LV Dimensions 2D/MM IVS Diastolic Thickness (2D) 1.0 cm 0.6-1.0 LVID Diastole (2D) 4.8 cm 3.8-5.2 LVIW Diastolic Thickness (2D) 0.9 cm 0.6-0.9 LVID Systole (2D) 3.4 cm 2.2-3.5 LVOT Diameter 1.9 cm LV Mass (2D Cubed) 165.50 g 67.00-162.00 LV Mass Index (2D Cubed) 73 g/m2 43-95 Relative Wall Thickness (2D) 0.39 LV Fractional Shortening/Ejection Fraction 2D/MM LV Fractional Shortening (2D) 30 % 27-45 LV EF (2D Teicholz) 58 % 54-74 LV Diastolic Volume (4C MOD) 102 ml LV EF (4C MOD) 51 % LV Diastolic Volume (2C MOD) 95 ml LV EF (2C MOD) 60 % LV Diastolic Volume (BP MOD) 101 ml 46-106 LV Diastolic Volume Index (BP MOD) 44 ml/m2 29-61 LV Systolic Volume (BP MOD) 44 ml 14-42 LV Systolic Volume Index (BP MOD) 19 ml/m2 8-24 LV EF (BP MOD) 56 % 54-74 LV Diastolic Length (4C) 7.8 cm LV Systolic Length (4C) 5.9 cm LV Stroke Volume (4C MOD) 52 ml Atria Name Value Normal LA Dimensions LA Dimension (MM) 4.1 cm 2.7-3.8 LA Volume (4C A-L) 48 ml LA Volume (BP A-L) 54 ml RA Dimensions RA Area (4C) 19.3 cm2 <=18.0 Report Signatures
[2024-10-23] MEDS: LEVOTHYROXINE SODIUM 50 MCG TABLET PO (06:24)
[2024-10-23] MEDS: LEVOTHYROXINE SODIUM 125 MCG TABLET PO (06:24)
--- NOTE | 2024-10-23 08:48 | P.PNIM_ITS ---
Progress Note: A&P Assessment and Plan (1) Elevated troponin: Code(s): R79.89 - Other specified abnormal findings of blood chemistry Status: Acute (2) Syncope: Qualifiers: Syncope type: unspecified Qualified Code(s): R55 - Syncope and collapse Code(s): R55 - Syncope and collapse Status: Acute (3) Morbid obesity with BMI of 45.0-49.9, adult: Code(s): E66.01 - Morbid (severe) obesity due to excess calories; Z68.42 - Body mass index [BMI] 45.0-49.9, adult Status: Acute (4) Weight loss: Code(s): R63.4 - Abnormal weight loss Status: Acute Plan Seizure pt was found on the floor in the kitchen shaking her extremities and foaming at the mouth. States she was unconscious for approximately 2 minutes, seemed confused and disoriented for approximately 10 minutes. pt was having difficulty recalling the events that occurred and repeating questions. CT head with no acute intracranial abnormality. X-ray bilateral knees unremarkable. X-ray left hip unremarkable. X-ray chest with no acute cardiopulmonary process. EKG showed sinus rhythm with sinus arrhythmia prolonged TN interval to to 0 1 consistent with first-degree AV block normal QRS duration normal QTC. Troponin came back elevated at 0.042. Serial troponin was performed which showed 0.042-0.172-0.125. Most likely seizure also patient has history of syncope MRI : No acute cerebral infarction. No acute or subacute hemorrhage. No abnormal contrast enhancement. Scattered nonspecific increased T2 weighted signal intensity within the cerebral white matter without abnormal contrast enhancement or additional signal abnormality. EEG unremarkable Appreciate neurology's consultation, s/w Keppra 750 mg q12h po History of syncope she has had 2 syncopal episodes in the past few months, first syncopal episode was in June and the 2nd was in September. She was advised to follow up outpatient with Cardiology Neurology after the syncopal episodes. States she has had a negative workup with Cardiology thus far. Stress test 08/2024 was negative. Holter showed some episodes of supraventricular tachycardia otherwise unremarkable. consulted cardiology. echo pending. She was orthostatic with systolic blood pressure dropping about 30 points. residential monitor showing bradycardia around 40 at night while sleeping. Sinus bradycardia, elevated troponin telemetry with mild sinus bradycardia otherwise unremarakalb.e carotid ultrasound unremarkable. She also had MRI brain which showed microhemorrhages in cerebellar and frontal lobe. Findings suggestive of intracranial hypertension. She follows up with neurologist. No prior history of seizures. Neurology consulted. Elevated troponin placed on aspirin 81 mg daily Thyroid cancer status post thyroidectomy August 2024 on thyroid supplement. TSH mildly low with high T4 reduce synthyroid from 175 mcg to 125 mcg luigiy f/u PCP for redosing base on TSH Bilateral knee pain history of bilateral knee replacement x-ray unremarkable Recent history of significant weight loss History of sleep apnea on CPAP Hypertension Hold amlodipine Hyperlipidemia DVT prophylaxis Lovenox Code status full code Subjective Date/time seen: 10/23/24 08:48 Interval history: no overnight events, left knee is feeling a bit better. has not walked yet. telemetry reviewed. overnigth bradycardia sinus noted Exam Narrative: GENERAL: Well-appearing, well-nourished, and in no acute distress. HEAD: Normocephalic, atraumatic. EYES: PERRLA and EOMI. ENT: Nares clear, no rhinorrhea or epistaxis. Mucous membranes moist. CHEST: Clear to auscultation. No respiratory distress. HEART: Regular rate and rhythm. No murmur heard. Normal peripheral pulses. ABDOMEN: Soft, nontender, nondistended, normal active bowel sounds. EXTREMITIES: Diffuse tenderness to the knees on palpation bilaterally with no overlying skin changes or deformities. Limited active range of motion secondary to pain. Full passive range of motion. DP pulse 2 +. Sensation intact. Tenderness to the left hip with full active range of motion no obvious deformities SKIN: Warm, dry, no rash. NEURO: No focal deficits. Alert and oriented x3. Cranial nerves 2-12 intact. Strength 5/5 in BUE and BLE. Sensation intact throughout Objective Data Vital Signs Vital Signs: Vital Signs - 24 hr 10/22/24 10:00 10/22/24 12:00 10/22/24 15:19 Temperature Pulse Rate 67 86 Respiratory Rate Blood Pressure Pulse Oximetry Oxygen Delivery Room Air 10/22/24 16:00 10/22/24 16:19 10/22/24 20:00 Temperature 98.9 F Pulse Rate 61 54 L 45 L Respiratory Rate 20 Blood Pressure 143/69 H Pulse Oximetry 100 Oxygen Delivery 10/22/24 20:00 10/22/24 22:35 10/23/24 00:00 Temperature 97.6 F Pulse Rate 57 L 53 L 40 L Respiratory Rate 14 Blood Pressure 111/54 L Pulse Oximetry 98 Oxygen Delivery CPAP 10/23/24 02:36 10/23/24 04:00 10/23/24 04:00 Temperature 97.8 F Pulse Rate 46 L 39 L Respiratory Rate 16 Blood Pressure 120/60 Pulse Oximetry 96 Oxygen Delivery CPAP 10/23/24 07:32 Temperature 98.2 F Pulse Rate 46 L Respiratory Rate 21 H Blood Pressure 144/87 H Pulse Oximetry 100 Oxygen Delivery Intake/Output Intake/Output: Intake & Output 10/20/24 10/21/24 10/22/24 10/23/24 23:59 23:59 23:59 23:59 Intake Total 1000 1240 1420 300 Output Total 300 2300 0 Balance 1000 940 -880 300 Meds/Results Medications: Active Medications Generic Name Dose Route Start Last Admin Trade Name Freq PRN Reason Stop Dose Admin Acetaminophen 650 mg 10/21/24 08:25 10/22/24 20:50 Acetaminophen 325 Mg Tablet PO 650 mg Q6H PRN Administration Mild Pain (1-3) or Fever Aspirin 81 mg 10/22/24 09:00 10/22/24 09:49 Aspirin 81 Mg Enteric Tablet PO 81 mg QAM DREW Administration Atorvastatin Calcium 40 mg 10/21/24 09:00 10/22/24 09:48 Atorvastatin 40 Mg Tablet PO 40 mg DAILY DREW Administration Enoxaparin Sodium 40 mg 10/22/24 09:00 10/22/24 09:48 Enoxaparin 40 Mg/0.4 Ml Syringe SUB-Q 40 mg DAILY DREW Administration Levothyroxine Sodium 125 mcg 10/22/24 06:30 10/23/24 06:24 Levothyroxine Sodium 125 Mcg Tablet PO 125 mcg DAILY@0630 DREW Administration Levothyroxine Sodium 50 mcg 10/22/24 06:30 10/23/24 06:24 Levothyroxine Sodium 50 Mcg Tablet PO 50 mcg DAILY@0630 DREW Administration Perflutren Lipid Microsphere 0 ml 10/20/24 23:06 Perflutren Lipid Microspheres 1.5 Ml Vial Diluted To 10 Ml Total Volume IV PUSH 10/23/24 23:07 ONCE PRN adequate visualization Protocol Perflutren Lipid Microsphere 0 ml 10/21/24 13:02 Perflutren Lipid Microspheres 1.5 Ml Vial Diluted To 10 Ml Total Volume IV PUSH 10/24/24 13:03 ONCE PRN adequate visualization Protocol Sertraline HCl 100 mg 10/21/24 09:00 10/22/24 09:48 Sertraline Hcl 50 Mg Tablet PO 100 mg DAILY DREW Administration Vitamin D 5,000 units 10/22/24 14:00 10/22/24 14:00 Cholecalciferol 5,000 Units Tablet PO 5,000 units DAILY DREW Administration Radiology Results: ITS Impressions Head CT 10/20/24 19:06 IMPRESSION: No acute intracranial process. Chest X-Ray 10/20/24 19:20 IMPRESSION: No focal infiltrate or effusion. Knee X-Ray 10/20/24 19:23 IMPRESSION: No acute osseous finding in the right knee. No radiographic evidence of hardware related complication. Hip/Pelvis X-Ray 10/20/24 22:35 IMPRESSION: No acute osseous finding in the pelvis or left hip. Carotid Doppler Study 10/22/24 10:41 IMPRESSION: 1. Less than 50% stenosis in the right internal carotid artery. 2. Less than 50% stenosis in the left internal carotid artery. Brain MRI 10/22/24 22:56 IMPRESSION: No acute cerebral infarction. No acute or subacute hemorrhage. No abnormal contrast enhancement. Scattered nonspecific increased T2 weighted signal intensity within the cerebral white matter without abnormal contrast enhancement or additional signal abnormality. Left-sided mastoid effusion, as detailed above.
--- NOTE | 2024-10-23 09:32 | PCPTNOTE ---
Attempted PT eval 9:27, patient getting test done and unavailable. Will follow.
[2024-10-23] MEDS: SERTRALINE HCL 50 MG TABLET 100 MG PO (10:24)
[2024-10-23] MEDS: CHOLECALCIFEROL 5,000 UNITS TABLET 5000 UNITS PO (10:24)
[2024-10-23] MEDS: ASPIRIN 81 MG ENTERIC TABLET PO (10:24)
[2024-10-23] MEDS: ENOXAPARIN 40 MG/0.4 ML SYRINGE SUB-Q (10:24)
[2024-10-23] MEDS: ATORVASTATIN 40 MG TABLET PO (10:24)
--- NOTE | 2024-10-23 11:34 | WPDNEUROLOGY ---
Neurology EEG Report General Information Date of Study: 10/23/24 TEST Electroencephalogram DIAGNOSIS episodes of loss of consciousness CONDITION OF RECORDING bedside recording EEG NUMBER [id number] CLINICAL HISTORY patient had multiple episodes of loss consciousness EEG DESCRIPTION during wakefulness the background activity consists of posterior dominant alpha rhythm at 9-10 hertz with an amplitude of 15-30 microvolts which appears mildly formed. Electrode artifacts were seen for T3 electrode throughout the recording. Patient did not progress to stage 2 sleep. Hyperventilation or photic stimulation were not performed. Patient did not progress to stage 2 sleep. However during drowsiness attenuation of background activity was noted. IMPRESSION This is a normal EEG obtained during awake and drowsy states.
--- NOTE | 2024-10-23 11:57 | PM.PNCARD ---
Progress Note: A&P Assessment and Plan (1) Syncope: Qualifiers: Syncope type: unspecified Qualified Code(s): R55 - Syncope and collapse Code(s): R55 - Syncope and collapse Status: Acute Assessment and Plan: : She does have some mild bradycardia but I do not think she is passing after bradycardia. She was orthostatic with systolic blood pressure dropping about 30 points. monitoring and evaluation advisor showing bradycardia around 40 at night while sleeping. Echocardiogram is pending. Carotid ultrasound was unremarkable. Again, will stop amlodipine completely. Fluid hydration. Advised against her supplements and encourage hydration. Continue check orthostatic BP. EEG and MRI pending (2) Essential hypertension: Code(s): I10 - Essential (primary) hypertension Status: Acute Assessment and Plan: Will discontinue amlodipine since she has had significant weight loss and BP appears to be controlled (3) Elevated troponin: Code(s): R79.89 - Other specified abnormal findings of blood chemistry Status: Acute Assessment and Plan: 2D echocardiogram Doppler is pending. Aspirin 81 mg p.o. daily for now and continue atorvastatin 40 mg daily. Neurology to see and if seizure is a likelihood for her most recent episode, that would explain her troponin elevation or even significant hypotension could explain at also. She did have a negative stress about 2 months ago (4) Weight loss: Code(s): R63.4 - Abnormal weight loss Status: Acute Assessment and Plan: On supplements and other diet and not eating or drinking well Subjective Date/time seen: 10/23/24 11:57 Interval history: 68-year-old admitted for syncope, elevated troponins, possible seizure Follow-up note 10/22/2024: Feels good. Swelling better. No chest pain or shortness of breath. Follow up note 10/23/2024: Continues to feel well but does complain of ongoing swelling and pain in both of her knees. No chest pain, shortness of breath. Review of Systems Review of Systems: All systems reviewed & are unremarkable except as noted in HPI and below Constitutional: Constitutional: Denies excessive sweating and Denies lethargy Eyes: Eyes: Denies blurry vision ENT: Denies dysphagia, Denies vertigo and Denies lip swelling Cardiovascular: Cardiovascular: Denies chest pain and Denies dyspnea on exertion Respiratory: Respiratory: Denies dyspnea on exertion Gastrointestinal: Gastrointestinal: Denies abdominal pain and Denies dysphagia Genitourinary: Genitourinary: Denies hematuria Musculoskeletal: Musculoskeletal: Denies back pain Integumentary/Breasts: Skin/Breast: Denies erythema Neurologic: Denies vertigo Psychiatric: Psychiatric: Denies anxiety Endocrine: Endocrine: Denies excessive sweating Hematologic/Lymphatic: Hematologic/Lymphatic: Denies easy bleeding Allergic/Immunologic: Allergic/Immunologic: Denies lip swelling Exam Narrative: Alert oriented appears to be in no acute distress. Appears stated age Const: General: comfortable and no acute distress HENMT: Ears: TM's normal bilaterally Face/Nose/Sinus: Normal nares present Eyes: General: appearance normal, both eyes and all related structures Sclera: sclerae normal Neck: Neck: supple and no JVD Chest: Other: No reproducible chest wall pain to palpation Resp: Effort & Inspection: normal respiratory effort Auscultation: clear to auscultation bilaterally Cardio: Rate: regular rate Rhythm: regular rhythm Heart sounds: no murmurs GI: Inspection: non-distended Auscultation: normal bowel sounds Skin: General skin exam: normal color Neuro: Speech: normal speech Motor exam (neuro): 5/5 motor strength present throughout Extrem: General: normal to inspection Psych: Mental Status: mental status grossly normal Affect: normal affect Objective Data Vital Signs Vital Signs: Vital Signs - 24 hr 10/22/24 12:00 10/22/24 15:19 10/22/24 16:00 Temperature Pulse Rate 86 61 Respiratory Rate Blood Pressure Pulse Oximetry Oxygen Delivery Room Air 10/22/24 16:19 10/22/24 20:00 10/22/24 20:00 Temperature 37.2 C 36.4 C Pulse Rate 54 L 45 L 57 L Respiratory Rate 20 14 Blood Pressure 143/69 H 111/54 L Pulse Oximetry 100 98 Oxygen Delivery 10/22/24 22:35 10/23/24 00:00 10/23/24 02:36 Temperature Pulse Rate 53 L 40 L Respiratory Rate Blood Pressure Pulse Oximetry Oxygen Delivery CPAP CPAP 10/23/24 04:00 10/23/24 04:00 10/23/24 07:32 Temperature 36.6 C 36.8 C Pulse Rate 46 L 39 L 46 L Respiratory Rate 16 21 H Blood Pressure 120/60 144/87 H Pulse Oximetry 96 100 Oxygen Delivery 10/23/24 11:37 10/23/24 11:38 10/23/24 11:42 Temperature Pulse Rate 51 L 77 68 Respiratory Rate 22 H Blood Pressure 127/64 130/59 L 125/69 Pulse Oximetry 99 Oxygen Delivery Intake/Output Intake/Output: Intake & Output 10/20/24 10/21/24 10/22/24 10/23/24 23:59 23:59 23:59 23:59 Intake Total 1000 1240 1420 540 Output Total 300 2300 0 Balance 1000 940 -880 540 Meds/Results Medications: Active Medications Generic Name Dose Route Start Last Admin Trade Name Freq PRN Reason Stop Dose Admin Acetaminophen 650 mg 10/21/24 08:25 10/22/24 20:50 Acetaminophen 325 Mg Tablet PO 650 mg Q6H PRN Administration Mild Pain (1-3) or Fever Aspirin 81 mg 10/22/24 09:00 10/23/24 10:24 Aspirin 81 Mg Enteric Tablet PO 81 mg QAM DREW Administration Atorvastatin Calcium 40 mg 10/21/24 09:00 10/23/24 10:24 Atorvastatin 40 Mg Tablet PO 40 mg DAILY DREW Administration Enoxaparin Sodium 40 mg 10/22/24 09:00 10/23/24 10:24 Enoxaparin 40 Mg/0.4 Ml Syringe SUB-Q 40 mg DAILY DREW Administration Levothyroxine Sodium 125 mcg 10/22/24 06:30 10/23/24 06:24 Levothyroxine Sodium 125 Mcg Tablet PO 125 mcg DAILY@0630 DREW Administration Levothyroxine Sodium 50 mcg 10/22/24 06:30 10/23/24 06:24 Levothyroxine Sodium 50 Mcg Tablet PO 50 mcg DAILY@0630 DREW Administration Perflutren Lipid Microsphere 0 ml 10/20/24 23:06 Perflutren Lipid Microspheres 1.5 Ml Vial Diluted To 10 Ml Total Volume IV PUSH 10/23/24 23:07 ONCE PRN adequate visualization Protocol Perflutren Lipid Microsphere 0 ml 10/21/24 13:02 Perflutren Lipid Microspheres 1.5 Ml Vial Diluted To 10 Ml Total Volume IV PUSH 10/24/24 13:03 ONCE PRN adequate visualization Protocol Sertraline HCl 100 mg 10/21/24 09:00 10/23/24 10:24 Sertraline Hcl 50 Mg Tablet PO 100 mg DAILY DREW Administration Vitamin D 5,000 units 10/22/24 14:00 10/23/24 10:24 Cholecalciferol 5,000 Units Tablet PO 5,000 units DAILY DREW Administration Radiology Results: ITS Impressions Head CT 10/20/24 19:06 IMPRESSION: No acute intracranial process. Chest X-Ray 10/20/24 19:20 IMPRESSION: No focal infiltrate or effusion. Knee X-Ray 10/20/24 19:23 IMPRESSION: No acute osseous finding in the right knee. No radiographic evidence of hardware related complication. Hip/Pelvis X-Ray 10/20/24 22:35 IMPRESSION: No acute osseous finding in the pelvis or left hip. Carotid Doppler Study 10/22/24 10:41 IMPRESSION: 1. Less than 50% stenosis in the right internal carotid artery. 2. Less than 50% stenosis in the left internal carotid artery. Brain MRI 10/22/24 22:56 IMPRESSION: No acute cerebral infarction. No acute or subacute hemorrhage. No abnormal contrast enhancement. Scattered nonspecific increased T2 weighted signal intensity within the cerebral white matter without abnormal contrast enhancement or additional signal abnormality. Left-sided mastoid effusion, as detailed above.
--- NOTE | 2024-10-23 15:19 | P.DS_ITS ---
DS: Admitting Diagnosis Discharge Date 10/23/24 Admitting Diagnosis (1) Elevated troponin: Code(s): R79.89 - Other specified abnormal findings of blood chemistry Status: Acute (2) Syncope: Qualifiers: Syncope type: unspecified Qualified Code(s): R55 - Syncope and collapse Code(s): R55 - Syncope and collapse Status: Acute (3) Morbid obesity with BMI of 45.0-49.9, adult: Code(s): E66.01 - Morbid (severe) obesity due to excess calories; Z68.42 - Body mass index [BMI] 45.0-49.9, adult Status: Acute (4) Weight loss: Code(s): R63.4 - Abnormal weight loss Status: Acute DS: Discharge Diagnosis Discharge Diagnosis (1) Elevated troponin: Code(s): R79.89 - Other specified abnormal findings of blood chemistry Status: Acute (2) Syncope: Qualifiers: Syncope type: unspecified Qualified Code(s): R55 - Syncope and collapse Code(s): R55 - Syncope and collapse Status: Acute (3) Morbid obesity with BMI of 45.0-49.9, adult: Code(s): E66.01 - Morbid (severe) obesity due to excess calories; Z68.42 - Body mass index [BMI] 45.0-49.9, adult Status: Acute (4) Weight loss: Code(s): R63.4 - Abnormal weight loss Status: Acute DS: Summary Hospital Course Hospital Course: Per H&P, This is a 68-year-old female who presents to the ED via EMS from home for syncope vs seizure. Patient's daughter is at bedside who assist with history. States she was in the basement when she heard a loud thud. She found her mother on the floor in the kitchen shaking her extremities and foaming at the mouth. States she was unconscious for approximately 2 minutes and contacted 911. When the patient woke up she seemed confused and disoriented for approximately 10 minutes. States she was able to say where she was and who she was, however she was having difficulty recalling the events that occurred and repeating questions. She took her blood pressure around 1:00 p.m. today and found it was 120s/80s. States shortly after she began feeling lightheaded while she was cooking in the kitchen. States she wanted to finish cooking so she could eat and was planning to retake her blood pressure, however unfortunately while cooking and she passed out. ED evaluation with laboratory workup showed no leukocytosis or anemia. Came panel was unremarkable. Magnesium is normal. CT head with no acute intracranial abnormality. X-ray bilateral knees unremarkable. X-ray left hip unremarkable. X-ray chest with no acute cardiopulmonary process. EKG showed sinus rhythm with sinus arrhythmia prolonged CT interval to to 0 1 consistent with first-degree AV block normal QRS duration normal QTC. Troponin came back elevated at 0.042. Serial troponin was performed which showed 0.042-0.172-0.125. The following med issues have been addressed during hospitalization Seizure pt was found on the floor in the kitchen shaking her extremities and foaming at the mouth. States she was unconscious for approximately 2 minutes, seemed confused and disoriented for approximately 10 minutes. pt was having difficulty recalling the events that occurred and repeating questions. CT head with no acute intracranial abnormality. X-ray bilateral knees unremarkable. X-ray left hip unremarkable. X-ray chest with no acute cardiopulmonary process. EKG showed sinus rhythm with sinus arrhythmia prolonged CT interval to to 0 1 consistent with first-degree AV block normal QRS duration normal QTC. Troponin came back elevated at 0.042. Serial troponin was performed which showed 0.042-0.172-0.125. Most likely seizure also patient has history of syncope MRI : No acute cerebral infarction. No acute or subacute hemorrhage. No abnormal contrast enhancement. Scattered nonspecific increased T2 weighted signal intensity within the cerebral white matter without abnormal contrast enhancement or additional signal abnormality. EEG unremarkable Appreciate neurology's consultation, s/w Keppra 750 mg q12h po History of syncope she has had 2 syncopal episodes in the past few months, first syncopal episode was in June and the 2nd was in September. She was advised to follow up outpatient with Cardiology Neurology after the syncopal episodes. States she has had a negative workup with Cardiology thus far. Stress test 08/2024 was negative. Holter showed some episodes of supraventricular tachycardia otherwise unremarkable. consulted cardiology. echo pending. She was orthostatic with systolic blood pressure dropping about 30 points. quality assurance monitor body showing bradycardia around 40 at night while sleeping. Sinus bradycardia, elevated troponin telemetry with mild sinus bradycardia otherwise unremarkable carotid ultrasound unremarkable. She also had MRI brain which showed microhemorrhages in cerebellar and frontal lobe. Findings suggestive of intracranial hypertension. She follows up with neurologist. No prior history of seizures. Neurology consulted. Elevated troponin placed on aspirin 81 mg daily Thyroid cancer status post thyroidectomy August 2024 on thyroid supplement. TSH mildly low with high T4 reduce synthyroid from 175 mcg to 125 mcg luigiy f/u PCP for redosing base on TSH Bilateral knee pain history of bilateral knee replacement x-ray unremarkable Recent history of significant weight loss History of sleep apnea on CPAP Hypertension Hold amlodipine Blood pressure stable Hyperlipidemia Continue home medication Time Spent with Patient Time attestation: Total time spent providing and/or coordinating discharge services: Exam Narrative: GENERAL: Well-appearing, well-nourished, and in no acute distress. HEAD: Normocephalic, atraumatic. EYES: PERRLA and EOMI. ENT: Nares clear, no rhinorrhea or epistaxis. Mucous membranes moist. CHEST: Clear to auscultation. No respiratory distress. HEART: Regular rate and rhythm. No murmur heard. Normal peripheral pulses. ABDOMEN: Soft, nontender, nondistended, normal active bowel sounds. EXTREMITIES: Diffuse tenderness to the knees on palpation bilaterally with no overlying skin changes or deformities. Limited active range of motion secondary to pain. Full passive range of motion. DP pulse 2 +. Sensation intact. Tenderness to the left hip with full active range of motion no obvious deformities SKIN: Warm, dry, no rash. NEURO: No focal deficits. Alert and oriented x3. Cranial nerves 2-12 intact. Strength 5/5 in BUE and BLE. Sensation intact throughout Discharge Plan Discharge Attending physician on discharge: Umu Benson Consulting providers: Kendall Win; Cheryl Heath Discharging Clinician: Umu Benson Anticipated Discharge Date/Time: 10/23/24 15:23 Patient Disposition: Home, Self-Care Activity: as tolerated Diet: as tolerated and heart healthy Patient Instructions: Levetiracetam (By mouth), Heart Healthy Diet (DC), New- Onset Seizure in Adults (DC) Patient Language: [place] Stand Alone Forms: General Discharge Information Follow-up/Referrals: Cheryl Heath MD [Physician] - (see neurologist at scheduled appointment) Discharge Medications: New levothyroxine [Synthroid] 125 mcg Tablet 125 mcg PO DAILY@0630 Qty: 30 0RF levetiracetam 750 mg Tablet 750 mg PO BID Qty: 60 0RF Continued cholecalciferol (vitamin D3) [Vitamin D3] 125 mcg (5,000 unit) tablet 5,000 unit PO DAILY atorvastatin 40 mg tablet 40 mg PO DAILY sertraline 100 mg tablet 100 mg PO DAILY acetaminophen [Tylenol] 325 mg tablet 650 mg PO Q6H PRN (Reason: pain) Discontinued levothyroxine 175 mcg tablet 175 mcg PO DAILY amlodipine 5 mg tablet 5 mg PO ONCE PRN (Reason: increased blood pressure) Patient Comments: daily prn for increased BP Date of admission: 10/20/24 23:06 Primary Care Provider: Abdiel Davila Admitting Provider: Arnoldo Adams V. Attending physician on admission: Arnoldo Adams V. Condition: Stable
[2024-10-23] MEDS: levETIRAcetam Tablet 250 MG, levETIRAcetam Tablet 500 MG 750 MG PO (16:29)
== END 2024-10-23 17:12 | disposition home or self-care (01) ==
LOC: ANHED 22:55 → ANHIMU 10-23 08:13
PROVIDERS: Internal Medicine; Student in an Organized Health Care Education/Training Program; Admitting Provider Internal Medicine; Emergency Provider Physician Assistant; Visit Provider Hospitalist
DX: R55 Syncope and collapse (principal); R56.9 Unspecified convulsions; R79.89 Other specified abnormal findings of blood chemistry; R00.1 Bradycardia, unspecified; C73 Malignant neoplasm of thyroid gland; E89.0 Postprocedural hypothyroidism; E66.01 Morbid (severe) obesity due to excess calories; Z68.38 Body mass index [BMI] 38.0-38.9, adult; R63.4 Abnormal weight loss; I10 Essential (primary) hypertension; E78.5 Hyperlipidemia, unspecified; G47.30 Sleep apnea, unspecified; Z96.653 Presence of artificial knee joint, bilateral; Z79.899 Other long term (current) drug therapy
CPT/HCPCS: 36415; 70450; 70553; 71045; 71046; 73502; 73564; 80053; 81001; 83735; 83880; 84439; 84443; 84484; 85025; 85055; 85610; 85730; 93005; 93306; 93880; 95816; 96360; 96361; 96372; 97161; 97165; 99285; A9270; A9577; G0378; J1650; J7030; J7040